=== PATIENT | female | born 1940 | race Caucasian/White ===

== ENCOUNTER 2018-09-15 11:46 | Emergency (ER) | payer MEDICARE ==
--- NOTE | 2018-09-15 12:22 | ERPHSYRPT ---
- History of Present Illness Time Seen by Provider: 09/15/18 12:09 Source: patient Exam Limitations: no limitations Patient Subjective Stated Complaint: pt here for pain to right shoulder for a few days now from a fall, pt can not rremember the date she fell or is she passed out and then fell or lost balance, she suffers from parkinson and also has been having syncopal spells for about 1 1/2 years. she was sent from resp. dept after getting an EEG to have arm checked out Triage Nursing Assessment: pt walked in with walker, alert, resp easy, has bruising and swelling to right upper arm, pt has pain from shoulder to elbow Physician History: This is a 77-year-old white female with history of hypothyroidism, hyperlipidemia, high blood pressure, myocardial infarction, frequent urinary tract infections and Parkinson's. She arrives with complaint of pain in her right shoulder which she states is chronic however she states that she fell approximately one week ago. She states that she had had bruising all down her right humerus which appears to be getting better however she was seen at respiratory obtaining an EEG. apparently thought that and the residential pest control technician thought that the patient's right shoulder appeared to be dislocated. Patient states she has chronic right shoulder pain. She states that it has been worse since falling a week ago. She denies other complaints. Patient is being worked up secondary to her falls neurologist had ordered an EEG. Past medical history includes hypothyroidism, hyperlipidemia, high blood pressure, myocardial infarction, UTI, Parkinson's Past surgical history includes cholecystectomy, hysterectomy, back surgery, foot surgery Occurred: other (chronic right shoulder pain worse sincefalling 1 week ago) Quality: constant Severity of Pain-Max: moderate Severity of Pain-Current: mild Extremities Pain Location: shoulder: right, arm: right Modifying Factors: Improves With: movement Associated Symptoms: No back pain, No chills, No chest discomfort, No chest pain , No dyspnea, No fever, No jaw pain, No neck pain, No sweating, No short of breath, No vomiting Allergies/Adverse Reactions: rice Allergy (Uncoded 09/15/18 12:06) Home Medications: Amlodipine Besylate 5 mg DAILY 09/15/18 [History] Carbidopa/Levodopa [Carbidopa-Levodopa 25-100 Tab] 1 ea DAILY 09/15/18 [History] Docusate Sodium 100 mg DAILY 09/15/18 [History] Donepezil HCl 10 mg DAILY 09/15/18 [History] Latanoprost 2.5 ml .ROUTE DAILY 09/15/18 [History] Levothyroxine Sodium 50 mg DAILY 09/15/18 [History] Rasagiline Mesylate 1 mg DAILY 09/15/18 [History] Hx Influenza Vaccination/Date Given: No Hx Pneumococcal Vaccination/Date Given: No Immunizations Up to Date: Yes - Review of Systems Constitutional: No Symptoms (thanks of normal) Eyes: No Symptoms Ears, Nose, & Throat: No Symptoms, No Ear Pain (he doesn't he is already), No Ear Discharge, No Hearing Changes, No Tinnitus, No Nose Pain, No Nose Congestion , No Nose Discharge, No Sinus Drainage, No Epistaxis, No Mouth Pain, No Mouth Swelling, No Loose Teeth, No Throat Pain, No Throat Swelling, No Hoarse, No Painful Swallowing, No Snoring, No Stridor Respiratory: Stridor, No Cough, No Dyspnea Abdominal/Gastrointestinal: No Abdominal Pain, No Nausea, No Vomiting, No Diarrhea Genitourinary Symptoms: No Dysuria Musculoskeletal: Fall (fell one week ago), Injury (fell one week ago), Other ( pain right shoulder, bruising right arm) Skin: Other, No Rash Neurological: No Dizziness, No Focal Weakness, No Sensory Changes Psychological: No Symptoms Endocrine: No Symptoms All Other Systems: Reviewed and Negative - Past Medical History Pertinent Past Medical History: Yes Cardiac History: High Cholesterol, Hypertension, Myocardial Infarction ([place]) Endocrine Medical History: Hypothyroidism Other Medical History: , utis, parkinson - Past Surgical History Gastrointestinal: Cholecystectomy Musculoskeletal: Orthopedic Surgery Female Surgical History: Hysterectomy Other Surgical History: back surgery , foot surgery - Social History Smoking Status: Never smoker Exposure to second hand smoke: Yes Drug Use: none Patient Lives Alone: No - Female History Hx Last Menstrual Period: post Hx Now: No - Nursing Vital Signs Nursing Vital Signs: Initial Vital Signs Temperature 97.7 F 09/15/18 11:57 Pulse Rate 71 09/15/18 11:57 Respiratory Rate 16 09/15/18 11:57 Blood Pressure 169/82 09/15/18 11:57 O2 Sat by Pulse Oximetry 93 L 09/15/18 11:57 Pain Scale Pain Intensity 5 - Physical Exam General Appearance: alert, thin, other (elderly-appearing) Eyes, Ears, Nose, Throat Exam: moist mucous membranes Neck Exam: non-tender, supple Cardiovascular/Respiratory Exam: chest non-tender, normal breath sounds, regular rate/rhythm, no respiratory distress Abdominal Exam: non-tender, No guarding Back Exam: normal inspection, No vertebral tenderness Shoulder Exam: ecchymosis (Ecchymosis right lateral arm), limited ROM ( decreased range of motion right shoulder) Elbow/Forearm Exam: ecchymosis (ecchymosis right lateral arm decreased range of motion right shoulder), limited ROM Wrist Exam: normal inspection, non-tender, no evidence of injury, normal ROM Hand Exam: normal inspection, non-tender, no evidence of injury, normal ROM DTR - Upper Extremity Exam: tricep (R): 2+, tricep (L): 2+ Neuro/Tendon Exam: normal sensation, normal motor functions Mental Status Exam: alert, oriented x 3, cooperative Skin Exam: other (Ecchymosis right lateral arm) SpO2 Interpretation: normal (3%) SpO2: 93 - Course Nursing assessment & vital signs reviewed: Yes - Radiology Exams Right Shoulder X-ray Interpretation: Discussed w/ radiologist (x-ray right shoulder: Impression : Mild osteopenia, mild/moderate AC degenerative arthropathy, mild multilevel degenerative spondylosis, mild dextroscoliosis, and right lung calcified granuloma. No other bony, articular, or soft tissue abnormalities.) Right Humerus X-ray Interpretation: Discussed w/ radiologist (X-ray right humerus: Impression : Mild osteopenia, mild/moderate AC degenerative arthropathy, and tiny lateral epicondyle spur. No other bony, articular, or soft tissue abnormalities.) Ordered Tests: Active Orders 24 hr Category Date Time Status HUMERUS Stat Exams 09/15/18 12:15 Completed SHOULDER Stat Exams 09/15/18 12:15 Completed - Progress Progress: improved Progress Note: 09/15/18 12:22 This is a 77-year-old white female with history of hypothyroidism, hyperlipidemia, high blood pressure, myocardial infarction, UTI, Parkinson's. Patient was sent from respiratory where she was receiving an EEG which was ordered by her neurologist. Patient has a history of frequent falls and has had frequent syncopal episodes in the past. She states that she has chronic right shoulder pain. However she states that she fell approximately one week ago she was noted to have ecchymosis on her right lateral arm she states bruising from the proximal humerus down to the distal humerus. Patient has chronic pain in her right shoulder. Apparently when she was getting her EEG staff at the respiratory center felt like she had possible dislocation of her shoulder so they were sent to the emergency room. Patient does not appear to be in acute distress she does state that she has pain with moving her shoulder this has been chronic and is worse for the last week. Patient states she took 2 Tylenols at about 9:00 today. Will go ahead and obtain x-ray of the patient's right shoulder and right humerus. 09/15/18 13:09 X-ray of the right shoulder, right humerus, negative fracture or subluxation. Patient unable to abduct her right shoulder without pain, also with pain with reaching forward on the right shoulder. She has been running her walker without difficulty. She does not want a sling. She took Tylenol at 9:30 she does not want another pain medication she states she will take more Tylenol at 1:30 and take this for pain. I have advised patient to follow-up with her family doctor. Patient with possible rotator cuff injury she does have some minimal abduction. - Departure Time of Disposition: 13:11 Departure Disposition: Home Clinical Impression: rule out rotator cuff injury Right shoulder strain Qualifiers: Encounter type: initial encounter Qualified Code(s): S46.911A - Strain of unspecified muscle, fascia and tendon at shoulder and upper arm level, right arm , initial encounter Right shoulder pain Qualifiers: Chronicity: unspecified Qualified Code(s): M25.511 - Pain in right shoulder Condition: Fair Critical Care Time: No Referrals: GIOVANNI PALM [Primary Care Provider] - Additional Instructions: Return home. Cold packs right shoulder 24-48 hours. Tylenol every 4 hours as needed for pain. Follow-up with your family doctor. Return for acute distress or for severe symptoms.
--- NOTE | 2018-09-15 13:04 | XRAY ---
Indication: Pain and bruising following fall one week ago. Comparison: None 3 views of the right shoulder demonstrates mild osteopenia, mild/moderate AC degenerative arthropathy, mild multilevel degenerative spondylosis, mild dextroscoliosis, and right lung calcified granuloma. No other bony, articular, or soft tissue abnormalities.
--- NOTE | 2018-09-15 13:05 | XRAY ---
Indication: Pain and bruising following fall one week ago. Comparison: None 2 views of the right humerus demonstrates mild osteopenia, mild/moderate AC degenerative arthropathy, and tiny lateral epicondyle spur. No other bony, articular, or soft tissue abnormalities.
[2018-09-15 13:37] VITALS: BP 140/60; PULSE 78; O2SAT 97
== END 2018-09-15 13:37 | disposition home or self-care (01) ==
LOC: ED 11:46
DX: S46.911A Strain of unspecified muscle, fascia and tendon at shoulder and upper arm level, right arm, initial encounter (principal); M25.511 Pain in right shoulder; E03.9 Hypothyroidism, unspecified; E78.5 Hyperlipidemia, unspecified; I10 Essential (primary) hypertension; I25.2 Old myocardial infarction; G20 Parkinson's disease; R58 Hemorrhage, not elsewhere classified; E78.00 Pure hypercholesterolemia, unspecified; Z79.899 Other long term (current) drug therapy
CPT/HCPCS: 73030; 73060; 99283

== ENCOUNTER 2019-06-05 11:39 | Emergency (ER) | payer MEDICARE ==
--- NOTE | 2019-06-05 12:14 | ERPHSYRPT ---
- History of Present Illness Time Seen by Provider: 06/05/19 12:00 Source: patient, other (home health nurse) Patient Subjective Stated Complaint: Pt states "I was at pt and I was having some slight abdominal pain. The home health nurse thought I was borderline UTI. " Triage Nursing Assessment: Pt presented alert and oriented X 3, skin pwd. Pt ambulates with a jerky movement, slightly unsteady gait, pt has parkinsons. No apparent respiratory distress. Physician History: 78 yo with parkinsonism , hypothyroidism , chronic issues with balance with tendency to have fall current getting PT is brought in here with CC of mild supra pubic pressure and difficulty urination. per HH nurse she is feeling a bit weaker than usual. no fever or chills. she has similar sx in past with UTI. Denies any abdominal/supra pubic pain at present. no nausea/vomiting or diarrhea reported. Timing/Duration: today Quality: fullness, pressure Onset Location: suprapubic Pain Radiation: none Severity of Pain-Max: mild Sexual intercourse history: non-contributory Modifying Factors: Improves With: nothing Associated Symptoms: dysuria, other (difficulty urinating) Allergies/Adverse Reactions: rice Allergy (Uncoded 09/15/18 12:06) Home Medications: Amlodipine Besylate 5 mg DAILY 09/15/18 [History] Carbidopa/Levodopa [Carbidopa-Levodopa 25-100 Tab] 1 ea DAILY 09/15/18 [History] Docusate Sodium 100 mg DAILY 09/15/18 [History] Donepezil HCl 10 mg DAILY 09/15/18 [History] Latanoprost 2.5 ml .ROUTE DAILY 09/15/18 [History] Levothyroxine Sodium 50 mg DAILY 09/15/18 [History] Rasagiline Mesylate 1 mg DAILY 09/15/18 [History] Hx Tetanus, Diphtheria Vaccination/Date Given: Yes Hx Influenza Vaccination/Date Given: No Hx Pneumococcal Vaccination/Date Given: No - Review of Systems Eyes: No Symptoms Ears, Nose, & Throat: No Symptoms Respiratory: No Symptoms Cardiac: No Symptoms Abdominal/Gastrointestinal: Abdominal Pain Genitourinary Symptoms: Dysuria, Urinary Retention Musculoskeletal: Arthralgias Skin: No Symptoms Neurological: Tremors Endocrine: No Symptoms Hematologic/Lymphatic: No Symptoms - Past Medical History Pertinent Past Medical History: Yes Neurological History: Dementia, Other Cardiac History: Myocardial Infarction ([place]) Respiratory History: Other Endocrine Medical History: Hypothyroidism Musculoskeletal History: Arthritis Other Medical History: [place] x3, Parkinson's, Dementia (early stage), Nebulizer ( PRN), Anxiety, - Past Surgical History Gastrointestinal: Cholecystectomy Musculoskeletal: Orthopedic Surgery Female Surgical History: Hysterectomy Other Surgical History: back surgery , foot surgery - Social History Smoking Status: Never smoker Exposure to second hand smoke: No Drug Use: none Patient Lives Alone: Yes - Female History Hx Now: No - Nursing Vital Signs Nursing Vital Signs: Initial Vital Signs Temperature 97.8 F 06/05/19 11:46 Pulse Rate 64 06/05/19 11:46 Respiratory Rate 18 06/05/19 11:46 Blood Pressure 135/81 06/05/19 11:46 O2 Sat by Pulse Oximetry 97 06/05/19 11:46 Pain Scale Pain Intensity 0 - Physical Exam General Appearance: no apparent distress Eye Exam: PERRL/EOMI, eyes nml inspection Ears, Nose, Throat Exam: normal ENT inspection, TMs normal, pharynx normal Neck Exam: normal inspection, non-tender, supple, full range of motion Respiratory Exam: normal breath sounds, lungs clear Cardiovascular Exam: regular rate/rhythm, normal heart sounds Gastrointestinal/Abdomen Exam: soft, normal bowel sounds, No tenderness, No distention, No guarding Pelvic Exam: not done Rectal Exam: deferred Back Exam: normal inspection, No CVA tenderness Extremity Exam: normal inspection Neurologic Exam: alert, oriented x 3, cooperative, client finance analyst II-XII nml as tested, depressed mood/affect, abnormal gait Skin Exam: normal color SpO2 Interpretation: normal SpO2: 97 O2 Delivery: Room Air - Course Nursing assessment & vital signs reviewed: Yes Ordered Tests: Active Orders 24 hr Category Date Time Status CBC Stat Lab 06/05/19 13:00 Completed CMP Stat Lab 06/05/19 13:00 Completed CULTURE,URINE Stat Lab 06/05/19 12:54 Ordered CULTURE,URINE Stat Lab 06/05/19 12:55 Received TSH, 3RD Generation Stat Lab 06/05/19 12:58 Ordered UA W/RFX UR CULTURE Stat Lab 06/05/19 12:55 Completed Medication Summary Generic Name Dose Route Start Last Admin Trade Name Freq PRN Reason Stop Dose Admin Cephalexin HCl 500 mg 06/05/19 13:27 Keflex 500 Mg PO 06/05/19 13:28 STAT ONE Sodium Chloride 500 mls @ 500 mls/hr 06/05/19 12:56 06/05/19 12:59 Sodium Chloride 0.9% 500 Ml IV 06/05/19 13:55 500 mls/hr .Q1H ONE Administration Discontinued Medications Generic Name Dose Route Start Last Admin Trade Name [place] PRN Reason Stop Dose Admin Sodium Chloride Confirm 06/05/19 12:58 Sodium Chloride 0.9% 500 Ml Administered 06/05/19 12:59 Dose 500 mls @ ud IV .STK-MED ONE Lab/Rad Data: Laboratory Result Diagrams 06/05/19 13:00 06/05/19 13:00 Laboratory Results 06/05/19 06/05/19 06/05/19 Range/Units 13:00 13:00 12:55 WBC 7.0 (4.0-10.5) K/mm3 RBC 3.90 L (4.1-5.4) M/mm3 Hgb 12.0 (12.0-16.0) gm/dl Hct 38.1 (35-47) % MCV 97.7 (78-100) fl MCH 30.7 (26-32) pg MCHC 31.5 L (32-36) g/dl RDW 14.0 (11.5-14.0) % Plt Count 283 (150-450) K/mm3 MPV 10.3 H (6-9.5) fl Sodium 140 (137-145) mmol/L Potassium 4.1 (3.5-5.1) mmol/L Chloride 100 (98-107) mmol/L Carbon Dioxide 31 H (22-30) mmol/L Anion Gap 13.3 (5-15) MEQ/L BUN 21 H (7-17) mg/dL Creatinine 0.79 (0.52-1.04) mg/dL Estimated GFR > 60.0 ML/MIN Glucose 88 (74-106) mg/dL Calcium 9.8 (8.4-10.2) mg/dL Total Bilirubin 0.50 (0.2-1.3) mg/dL AST 30 (14-36) U/L ALT 4 (0-35) U/L Alkaline Phosphatase 101 (38-126) U/L Serum Total Protein 6.8 (6.3-8.2) g/dL Albumin 3.8 (3.5-5.0) g/dL Urine Color YELLOW (YELLOW) Urine Appearance SLIGHTLY CLOUDY (CLEAR) Urine pH 6.0 (5-6) Ur Specific [place] 1.019 (1.005-1.025) Urine Protein NEGATIVE (Negative) Urine Ketones TRACE (NEGATIVE) Urine Blood NEGATIVE (0-5) Lonnie/ul Urine Nitrite NEGATIVE (NEGATIVE) Urine Bilirubin NEGATIVE (NEGATIVE) Urine Urobilinogen 4 (0-1) mg/dL Ur Leukocyte Esterase NEGATIVE (NEGATIVE) Urine WBC (Auto) 11-15 (0-5) /HPF Urine RBC (Auto) 11-15 (0-2) /HPF U Hyaline Cast (Auto) 3-5 (0-2) /LPF U Epithel Cells (Auto) NONE (FEW) /HPF Urine Bacteria (Auto) RARE (NEGATIVE) /HPF Urine Mucus (Auto) SLIGHT (NEGATIVE) /HPF Urine Culture Reflexed YES (NO) Urine Glucose NEGATIVE (NEGATIVE) mg/dL - Progress Progress: improved, re-examined Air Movement: fair Progress Note: she is given a small bolus of IV fluids. She does not have any abdominal tenderness to her stay in the ER. I have obtained a urinalysis with some element of UTI, started on Keflex. She is stable H&H and normal white count. Grossly unremarkable chemistries except for mildly elevated BUN and fluids are given. Patient feels better on reevaluation. No peritoneal signs at all. I do not think she needs any further workup and is stable for discharge with outpatient followup. This is signed end of the worsening antibiotic she seemed understanding. 06/05/19 13:28 Antibiotics given: Yes Counseled pt/family regarding: lab results, diagnosis, need for follow-up - Departure Departure Disposition: Home Clinical Impression: UTI (urinary tract infection) Qualifiers: Urinary tract infection type: acute cystitis Hematuria presence: without hematuria Qualified Code(s): N30.00 - Acute cystitis without hematuria Condition: Stable Critical Care Time: No Referrals: GIOVANNI PALM [Primary Care Provider] - Additional Instructions: follow up with primary care physician for reevaluation. Return to ER for any worsening pain/fever chills. Prescriptions: Cephalexin Mh 500 mg [Keflex 500 mg] 500 mg PO BID #10 capsule
[2019-06-05] MEDS ORDERED: Sodium Chloride 0.9% 500 ML 500 ML IV ONE ×2 (12:56→12:58)
[2019-06-05 13:01] LABS: Appearance SLIGHTLY CLOUDY (CLEAR); Bacteria RARE /HPF (NEGATIVE); Bilirubin NEGATIVE (NEGATIVE); Blood NEGATIVE Ery/ul (0-5); Glucose NEGATIVE (NEGATIVE); Ketones TRACE (NEGATIVE); Leukocyte Esterase NEGATIVE (NEGATIVE); Mucus SLIGHT /HPF (NEGATIVE); Nitrite NEGATIVE (NEGATIVE); Protein,Urine Dip NEGATIVE (Negative); Specific Gravity 1.019 (1.005-1.025); Urobilinogen 4 mg/dL (0-1)
[2019-06-05 13:05] LABS: Hematocrit 38.1 % (35-47); Mean Cell Volume 97.7 fl (78-100); Mean Corpuscular Hgb Concent. 31.5 g/dl (32-36); Mean Platelet Volume 10.3 fl (6-9.5); Platelet Count 283 K/mm3 (150-450)
[2019-06-05 13:15] LABS: ALBUMIN 3.8 g/dL (3.5-5.0); ALKALINE PHOSPHATASE 101 U/L (38-126); ANION GAP 13.3 MEQ/L (5-15); BLOOD UREA NITROGEN 21 mg/dL (7-17); CHLORIDE 100 mmol/L (98-107); Calcium 9.8 mg/dL (8.4-10.2); Carbon Dioxide 31 mmol/L (22-30); Creatinine 1 0.79 mg/dL (0.52-1.04); Glucose 88 mg/dL (74-106); Potassium 4.1 mmol/L (3.5-5.1); SGOT/AST 30 U/L (14-36); SODIUM 140 mmol/L (137-145); Total Protein 6.8 g/dL (6.3-8.2)
[2019-06-05 13:16] LABS: SGPT/ALT 4 U/L (0-35)
[2019-06-05 13:17] LABS: Mean Corpuscular Hemoglobin 30.7 pg (26-32)
[2019-06-05] MEDS ORDERED: KEFLEX 500 MG PO ONE (13:27)
[2019-06-05] MEDS ORDERED: KEFLEX 500 MG ONE (13:29)
[2019-06-05 13:37] VITALS: BP 140/92; PULSE 60; O2SAT 94
== END 2019-06-05 14:01 | disposition home or self-care (01) ==
LOC: ED 11:39
DX: N30.00 Acute cystitis without hematuria (principal); E03.9 Hypothyroidism, unspecified
CPT/HCPCS: 36000; 36415; 80053; 81001; 84443; 85027; 87077; 87086; 87186; 96360; 99284; A9270-GY

== ENCOUNTER 2019-07-13 10:15 | Emergency (ER) | payer MEDICARE ==
--- NOTE | 2019-07-13 10:20 | ERPHSYRPT ---
- History of Present Illness Time Seen by Provider: 07/13/19 10:20 Source: patient, family Exam Limitations: no limitations Physician History: 78 y/o white female with parkinsons dz and falls frequently, fell 3 days ago hit her head and had abd pain, shoulder and left femur pain. pt was evaluated at ED in [facility]. she underwent ct head, abd/pelvis and lumbar spine and xrays of left shoulder and left femur. pt presents with persistent pain mid left femur. pt did state she has had pain in this area for several months. hurts to stand or walk. no other new complaints Occurred: days ago (3) Reason for Fall: lost balance (secondary to her parkinsons dz) Injuries/Pain Location: lower extremity (left femur) Loss of Consciousness: no loss of consciousness Quality: aching, throbbing Severity of Pain-Max: moderate Severity of Pain-Current: moderate Modifying Factors: Improves With: movement Associated Symptoms (Fall): denies symptoms Allergies/Adverse Reactions: rice Allergy (Uncoded 07/13/19 10:28) Home Medications: Amlodipine Besylate 5 mg DAILY 09/15/18 [History] Carbidopa/Levodopa [Carbidopa-Levodopa 25-100 Tab] 1 ea DAILY 09/15/18 [History] Docusate Sodium 100 mg DAILY 09/15/18 [History] Donepezil HCl 10 mg DAILY 09/15/18 [History] Latanoprost 2.5 ml .ROUTE DAILY 09/15/18 [History] Levothyroxine Sodium 50 mg DAILY 09/15/18 [History] Rasagiline Mesylate 1 mg DAILY 09/15/18 [History] Ferrous Sulfate 325 mg PO DAILY 07/13/19 [History] Pravastatin Sodium 20 mg PO DAILY 07/13/19 [History] Hx Tetanus, Diphtheria Vaccination/Date Given: Yes Hx Influenza Vaccination/Date Given: No Hx Pneumococcal Vaccination/Date Given: No - Review of Systems Constitutional: No Symptoms Eyes: No Symptoms Ears, Nose, & Throat: No Symptoms Respiratory: No Symptoms Cardiac: No Symptoms Abdominal/Gastrointestinal: No Symptoms Genitourinary Symptoms: No Symptoms Musculoskeletal: No Symptoms, Fall, Other (left femur pain) Skin: No Symptoms Neurological: No Symptoms Psychological: No Symptoms Endocrine: No Symptoms Hematologic/Lymphatic: No Symptoms Immunological/Allergic: No Symptoms All Other Systems: Reviewed and Negative - Past Medical History Pertinent Past Medical History: Yes Neurological History: Dementia, Other Cardiac History: Myocardial Infarction ([place]) Respiratory History: Other Endocrine Medical History: Hypothyroidism Musculoskeletal History: Arthritis GI Medical History: No Pertinent History History: No Pertinent History Psycho-Social History: No Pertinent History Other Medical History: [place] x3, Parkinson's, Dementia (early stage), Nebulizer ( PRN), Anxiety, - Past Surgical History Neuro Surgical History: No Pertinent History Cardiac: No Pertinent History Respiratory: No Pertinent History Gastrointestinal: Cholecystectomy Genitourinary: No Pertinent History Musculoskeletal: Orthopedic Surgery Female Surgical History: Hysterectomy Other Surgical History: back surgery , foot surgery - Social History Smoking Status: Never smoker Exposure to second hand smoke: No Drug Use: none Patient Lives Alone: Yes - Nursing Vital Signs Nursing Vital Signs: Initial Vital Signs Temperature 98.6 F 07/13/19 10:22 Pulse Rate 66 07/13/19 10:22 Respiratory Rate 18 07/13/19 10:22 Blood Pressure 176/90 07/13/19 10:22 O2 Sat by Pulse Oximetry 97 07/13/19 10:22 Pain Scale Pain Intensity 9 - Mk Coma Score Best Eye Response ([place]): (4) open spontaneously Best Verbal Response ([place]): (5) oriented Best Motor Response (Mk): (6) obeys commands [place] Total: 15 - Physical Exam General Appearance: mild distress, alert, anxiety Head Injury: no evidence of injury Eye Exam: PERRL/EOMI, eyes nml inspection ENT Exam: airway nml, nml ext.inspection Neck Exam: supple, trachea midline, full range of motion, normal alignment Respiratory/Chest Exam: normal breath sounds, No chest tenderness, No respiratory distress Cardiovascular Exam: normal heart sounds, regular rate/rhythm Gastrointestinal Exam: soft, No tenderness Back Exam: normal inspection, normal range of motion, No CVA tenderness, No vertebral tenderness Extremity Exam: normal inspection, pelvis stable, bony point tenderness (mid femur on left), pain with movement Neurologic Exam: alert, oriented x 3, cooperative, facilities operator II-XII nml as tested Skin Exam: normal color, warm, dry SpO2 Interpretation: normal O2 Delivery: Room Air Ordered Tests: Active Orders 24 hr Category Date Time Status LOWER EXTREMITY WO CONTRAST [CT] Stat Exams 07/13/19 10:46 Completed Medication Summary Discontinued Medications Generic Name Dose Route Start Last Admin Trade Name Freq PRN Reason Stop Dose Admin Morphine Sulfate 2 mg 07/13/19 10:50 07/13/19 11:00 Morphine Sulfate 2 Mg Inj IM 07/13/19 10:51 2 mg STAT ONE Administration Morphine Sulfate Confirm 07/13/19 10:55 Morphine Sulfate 2 Mg Inj Administered 07/13/19 10:56 Dose 2 mg .ROUTE .STK-MED ONE Ondansetron HCl 4 mg 07/13/19 10:49 07/13/19 10:59 Zofran Odt 4 Mg PO 07/13/19 10:50 4 mg STAT ONE Administration Ondansetron HCl Confirm 07/13/19 10:55 Zofran Odt 4 Mg Administered 07/13/19 10:56 Dose 4 mg .ROUTE .STK-MED ONE - Progress Progress: improved Progress Note: 07/13/19 12:19 ct left femur-no acute process Counseled pt/family regarding: diagnosis, need for follow-up, rad results - Departure Departure Disposition: Home Clinical Impression: Pain of left femur Condition: Stable Critical Care Time: No Referrals: GIOVANNI PALM [Primary Care Provider] - Additional Instructions: follow up with primary doctor and neurologist for further management. Prescriptions: Hydrocodone/APAP 5/325 [M[place] 5/325 mg] 1 each PO Q12H PRN PRN #6 tablet MDD 2 PRN Reason: Pain
[2019-07-13 10:33] VITALS: PULSE 66
[2019-07-13] MEDS ORDERED: ZOFRAN ODT 4 MG PO ONE (10:49)
[2019-07-13] MEDS ORDERED: MORPHINE SULFATE 2 MG INJ IM ONE (10:50)
[2019-07-13] MEDS ORDERED: ZOFRAN ODT 4 MG ONE (10:55)
[2019-07-13] MEDS ORDERED: MORPHINE SULFATE 2 MG INJ ONE (10:55)
--- NOTE | 2019-07-13 12:12 | XRAY ---
Indication: Pain following fall 3 days ago. Multiple contiguous axial images obtained through the left femur. Two-dimensional sagittal and coronal reformatted images obtained. Comparison: None Study slightly degraded by motion artifact. There is osteopenia and minimal joint space narrowing of the hip. No acute fracture, dislocation, or suspicious bony lesions. Knee joint unremarkable without effusion. Mild scattered vascular calcifications throughout. Impression: Osteopenia, minimal left hip degenerative joint space narrowing, and mild scattered vascular calcifications in a otherwise negative CT left femur. CTDI 28.07.
[2019-07-13 13:33] VITALS: BP 134/87; O2SAT 99
== END 2019-07-13 13:46 | disposition home or self-care (01) ==
LOC: ED 10:15
DX: M79.652 Pain in left thigh (principal); W18.30XA Fall on same level, unspecified, initial encounter; R29.6 Repeated falls; M25.512 Pain in left shoulder; R10.9 Unspecified abdominal pain; G20 Parkinson's disease; F02.80 Dementia in other diseases classified elsewhere, unspecified severity, without behavioral disturbance, psychotic disturbance, mood disturbance, and anxiety; Z79.899 Other long term (current) drug therapy; E03.9 Hypothyroidism, unspecified; I25.2 Old myocardial infarction
CPT/HCPCS: 73700; 96372; 99284; J2270; Q0162

== ENCOUNTER 2020-10-14 19:50 | Emergency (ER) | payer MEDICARE ==
--- NOTE | 2020-10-14 19:53 | ERPHSYRPT ---
- History of Present Illness Time Seen by Provider: 10/14/20 19:52 Source: patient, EMS Exam Limitations: clinical condition Physician History: This is an 79-year-old white female has a history of dementia and Parkinson's disease as well as frequent falls and presents via ambulance after falling. She complains of neck pain, anterior chest wall pain and right hip pain. Patient uses a walker. She does not recall all the events of the fall. She also has a history of hypertension and hypothyroidism. Patient presents with a c-collar in place and pelvic binder in place. Patient was not on a backboard and was cleared at the scene from the backboard standpoint. Patient was given Zofran and fentanyl prior to arrival. Occurred: just prior to arrival Reason for Fall: unknown Injuries/Pain Location: neck, chest, lower extremity (Right hip) Loss of Consciousness: unsure Quality: aching Severity of Pain-Max: moderate Severity of Pain-Current: mild Modifying Factors: Improves With: immobilization Associated Symptoms (Fall): neck pain, other (Complains of anterior chest wall pain, neck pain and right hip pain) Allergies/Adverse Reactions: rice Allergy (Uncoded 10/14/20 20:08) Home Medications: Carbidopa/Levodopa [Carbidopa-Levodopa 25-100 Tab] 1 ea DAILY 09/15/18 [History] Donepezil HCl 10 mg DAILY 09/15/18 [History] Levothyroxine Sodium 50 mg DAILY 09/15/18 [History] Rasagiline Mesylate 1 mg DAILY 09/15/18 [History] Buspirone HCl 5 mg [Buspar 5 mg] 5 mg PO DAILY 10/14/20 [History] Hx Tetanus, Diphtheria Vaccination/Date Given: Yes Hx Influenza Vaccination/Date Given: No Hx Pneumococcal Vaccination/Date Given: No Travel Risk - International Travel Have you traveled outside of the country in past 3 weeks: No - Coronavirus Screening Are you exhibiting any of the following symptoms?: No Close contact with a COVID-19 positive Pt in past 14-21 Days: No - Review of Systems Constitutional: No Symptoms Eyes: No Symptoms Ears, Nose, & Throat: No Symptoms Respiratory: No Symptoms Cardiac: No Symptoms Abdominal/Gastrointestinal: No Symptoms Genitourinary Symptoms: No Symptoms Musculoskeletal: Neck Pain, Fall, Injury, Joint Pain (Right hip) Skin: No Symptoms Neurological: No Symptoms Psychological: No Symptoms Endocrine: No Symptoms Hematologic/Lymphatic: No Symptoms Immunological/Allergic: No Symptoms All Other Systems: Reviewed and Negative - Past Medical History Pertinent Past Medical History: Yes Neurological History: Other Cardiac History: Hypertension, Myocardial Infarction (SC) Respiratory History: No Pertinent History Endocrine Medical History: Hypothyroidism Musculoskeletal History: Osteoarthritis GI Medical History: No Pertinent History History: No Pertinent History Psycho-Social History: No Pertinent History Other Medical History: PMHX: FREQUENT UTIs. SX HX: CHOLECYSTECTOMY, HYSTERECTOMY, BACK SURGERY, FOOT SURGERY (PER PATIENT CUT BONES THAT GREW UP ON THE TOP OF HER FOOT OFF) - Past Surgical History Past Surgical History: Yes Neuro Surgical History: No Pertinent History Cardiac: No Pertinent History Respiratory: No Pertinent History Gastrointestinal: Cholecystectomy Genitourinary: No Pertinent History Musculoskeletal: Orthopedic Surgery Female Surgical History: Hysterectomy Other Surgical History: back surgery , foot surgery - Social History Smoking Status: Never smoker Exposure to second hand smoke: No Drug Use: none Patient Lives Alone: Yes - Nursing Vital Signs Nursing Vital Signs: Initial Vital Signs Temperature 97.0 F 10/14/20 19:52 Pulse Rate 61 10/14/20 19:52 Respiratory Rate 16 10/14/20 19:52 Blood Pressure 118/75 10/14/20 19:52 O2 Sat by Pulse Oximetry 98 10/14/20 19:52 Pain Scale Pain Intensity 5 - [place] Coma Score Best Eye Response (Mk): (4) open spontaneously Best Verbal Response ([place]): (4) confused conversation (Medicated with fentanyl prior to arrival) Best Motor Response (Mk): (6) obeys commands [place] Total: 14 - Physical Exam General Appearance: no apparent distress, thin Head Injury: no evidence of injury Eye Exam: PERRL/EOMI, eyes nml inspection ENT Exam: airway nml, nml ext.inspection, No evidence of ENT injury Neck Exam: c-collar in place Respiratory/Chest Exam: chest tenderness (Midline sternal tenderness to palpation), normal breath sounds, No respiratory distress, No ecchymosis, No crepitus Cardiovascular Exam: normal heart sounds, regular rate/rhythm, normal peripheral pulses, No murmur Gastrointestinal Exam: soft, normal bowel sounds Rectal Exam: not done Back Exam: normal inspection, normal range of motion, No CVA tenderness, No vertebral tenderness Extremity Exam: normal inspection, normal range of motion, pelvis stable Neurologic Exam: alert, cooperative, stock raiser II-XII nml as tested, confusion (Patient has dementia and was given fentanyl prior to arrival) Skin Exam: normal color, warm, dry SpO2 Interpretation: normal O2 Delivery: Room Air - Course Nursing assessment & vital signs reviewed: Yes Ordered Tests: Active Orders 24 hr Category Date Time Status CERVICAL SPINE WO CONTRAST [CT] Stat Exams 10/14/20 20:24 Taken CHEST WITHOUT CONTRAST [CT] Stat Exams 10/14/20 20:34 Taken HEAD WITHOUT CONTRAST [CT] Stat Exams 10/14/20 20:24 Taken LOWER EXTREMITY WO CONTRAST [CT] Stat Exams 10/14/20 20:09 Taken - Progress Progress: improved, re-examined Progress Note: 10/14/20 21:38 CAT scan of the head shows no acute intracranial abnormality CAT scan of the cervical spine shows degenerative changes but no acute fracture or subluxation CAT scan of the chest shows old rib fractures but no acute osseous or vascular process. CAT scan of the bilateral pelvis and hips reveals no evidence of any acute fracture or dislocation. Counseled pt/family regarding: diagnosis, need for follow-up, rad results - Departure Departure Disposition: Home Clinical Impression: Fall with no injury Condition: Stable Critical Care Time: No Referrals: MERRICK DIAZ [Primary Care Provider] - Additional Instructions: Continue the patient's medication as prescribed. Follow-up with the patient's primary care physician for further management.
[2020-10-14 20:10] VITALS: O2SAT 98
[2020-10-14 22:35] VITALS: BP 174/82; PULSE 60
--- NOTE | 2020-10-15 09:03 | XRAY ---
Indication: Pain following fall. History dementia/Parkinson's disease. Multiple contiguous axial images obtained through the head without contrast. Comparison: May 25, 2008. Progressive age-appropriate global atrophy and mild/moderate periventricular degenerative micro-ischemia bilaterally. No acute intra-abdominal hemorrhage, abnormal extra-axial fluid collection, or mass effect. Fourth ventricle is midline. Bony calvarium intact. Visualized paranasal sinuses and mastoid air cells are clear. Impression: Nonacute senile brain.
--- NOTE | 2020-10-15 09:07 | XRAY ---
Indication: Pain following fall. History dementia/Parkinson's disease. Multiple contiguous axial images obtained through the cervical spine. Sagittal and coronal reformatted images obtained. Comparison: None. Osseous structures demineralized consistent with patient's age. Axial images are degraded by motion artifact throughout. No acute fracture, suspicious bony lesions, or spinal canal stenosis. Mild C3-T1 degenerative endplate spurring. Also mild multilevel bilateral degenerative facet hypertrophy. Sagittal and coronal reformatted images demonstrates lordotic reversal, positional versus paraspinal spasm. C3-T1 degenerative disc space loss. No acute compression fracture, subluxation, or jumped facet. Normal appearing craniocervical junction. Visualized noncontrasted soft tissues demonstrates air bubbles in the right subclavian vein presumed iatrogenic. Impression: 1. Motion artifact. 2. Cervical lordotic reversal, positional versus paraspinal spasm. 3. Negative acute fracture/subluxation. 4. Osteopenia and multilevel degenerative changes.
--- NOTE | 2020-10-15 09:11 | XRAY ---
Indication: Pain following fall. History dementia/Parkinson's disease. Multiple contiguous axial images obtained through the chest without contrast. Comparison: None. Lungs demonstrates moderate bibasilar subsegmental atelectasis/scarring and tiny right upper lobe calcified granuloma. No suspicious pulmonary mass/nodule, infiltrate, effusion, or pneumothorax. Heart is not enlarged. Aorta is normal in course and caliber with mild arteriosclerotic calcifications. Tiny mediastinal and right hilar calcified nodes. No pathologic mediastinal lymphadenopathy. Bony thorax intact with osteopenia, mild degenerative changes throughout the spine, multilevel tiny Schmorl nodes, mild bilateral shoulder degenerative arthropathy, old right 9/10 rib fractures, and old left 6 rib fracture. Limited upper abdomen demonstrates 1.5 cm left lobe hepatic cyst. Impression: 1. Bibasilar atelectasis/scarring and old granulomatous disease. 2. No acute cardiopulmonary abnormalities on this noncontrast exam. 3. Chronic bony findings and incidental hepatic cyst.
--- NOTE | 2020-10-15 09:17 | XRAY ---
Indication: Pain following fall. History dementia/Parkinson's disease. Multiple contiguous axial images obtained through the pelvis with special attention to the osseous structures. Sagittal and coronal reformatted images obtained. Comparison: None. Osseous structures demineralized consistent with patient's age. Visualized lower lumbar spine demonstrates moderate degenerative spondylosis and 5 mm L5 spondylolisthesis. Both hips demonstrates weightbearing degenerative joint space loss and small bilateral greater trochanter spurring. Visualized noncontrasted soft tissues demonstrates scattered sigmoid diverticulosis and moderate aortoiliac calcifications. Impression: 1. Negative acute fracture/dislocation. 2. Osteopenia, lower lumbar degenerative spondylosis, grade 1 L5 spondylolisthesis, and bilateral hip degenerative arthropathy. 3. Incidental sigmoid diverticulosis.
== END 2020-10-14 22:30 | disposition home or self-care (01) ==
LOC: ED 19:50
DX: Z04.3 Encounter for examination and observation following other accident (principal); W19.XXXA Unspecified fall, initial encounter; M54.2 Cervicalgia; R07.89 Other chest pain; M25.551 Pain in right hip; F03.90 Unspecified dementia, unspecified severity, without behavioral disturbance, psychotic disturbance, mood disturbance, and anxiety; G20 Parkinson's disease; I10 Essential (primary) hypertension; E03.9 Hypothyroidism, unspecified; I25.2 Old myocardial infarction
CPT/HCPCS: 36000; 70450; 71250; 72125; 73700; 99284

== ENCOUNTER 2021-11-15 16:24 | Observation (INO) | payer MEDICARE ==
--- NOTE | 2021-11-15 17:10 | ERPHSYRPT ---
- History of Present Illness Source: patient, other (Son) Exam Limitations: other (Parkinson's Ds/Dementia) Patient Subjective Stated Complaint: see below Triage Nursing Assessment: pt is alert and oriented x3. pt comes in with son with c/o worsening confusion today and headache. pt is mildly confused but able to answer appropriately. no one sided weakness noted. no facial drooping. pt required assist of 2 to get from chair to bed. pt recently had UTI and has finished antibiotics. pt son tested for covid with home test and pt was postive. Physician History: 81 yo wf w Parkinson's Ds/Dementia presents w lethargy today. Pt had a + home CV19 test today. Pt has had a mild SLAUGHTER. Weakness is generalized and not focal. She is disoriented to time. Pt denies N/V/D/melena/hematochezia/chest pain/cough/dyspnea. Timing/Duration: yesterday, worse Severity: moderate Modifying Factors: Worsens With: cold therapy, eating, immobilization, medication, movement, rest, acetaminophen, ibuprofen, nothing Associated Symptoms: malaise, weakness, No nausea, No vomiting, No abdominal pain, No shortness of breath, No heartburn, No diaphoresis, No cough, No chills, No chest pain, No fever, No headaches, No loss of appetite, No rash, No syncope, No seizure Allergies/Adverse Reactions: rice Allergy (Uncoded 10/14/20 20:08) Home Medications: Carbidopa/Levodopa [Carbidopa-Levodopa 25-100 Tab] 1 ea DAILY 09/15/18 [History] Donepezil HCl 10 mg DAILY 09/15/18 [History] Levothyroxine Sodium 50 mg DAILY 09/15/18 [History] Rasagiline Mesylate 1 mg DAILY 09/15/18 [History] Buspirone HCl 5 mg [Buspar 5 mg] 5 mg PO DAILY 10/14/20 [History] Hx Tetanus, Diphtheria Vaccination/Date Given: Yes Hx Influenza Vaccination/Date Given: No Hx Pneumococcal Vaccination/Date Given: No Immunizations Up to Date: Yes Travel Risk - International Travel Have you traveled outside of the country in past 3 weeks: No - Coronavirus Screening Are you exhibiting any of the following symptoms?: Yes Symptoms: Headaches/Body Aches/Fatigue Close contact with a COVID-19 positive Pt in past 14-21 Days: Yes - Vaccine Status Have you recieved a Covid-19 vaccination: No - Review of Systems Constitutional: No Symptoms, Fatigue, Lethargy, Malaise, Weakness Eyes: No Symptoms Ears, Nose, & Throat: No Symptoms Respiratory: No Symptoms Cardiac: No Symptoms Abdominal/Gastrointestinal: No Symptoms Genitourinary Symptoms: No Symptoms Musculoskeletal: No Symptoms Skin: No Symptoms Neurological: No Symptoms, Headache, Lethargy Psychological: No Symptoms Endocrine: No Symptoms Hematologic/Lymphatic: No Symptoms Immunological/Allergic: No Symptoms - Past Medical History Pertinent Past Medical History: Yes Neurological History: Other ENT History: No Pertinent History Cardiac History: Hypertension, Myocardial Infarction (MA) Respiratory History: No Pertinent History Endocrine Medical History: Hypothyroidism Musculoskeletal History: Osteoarthritis GI Medical History: No Pertinent History History: No Pertinent History Psycho-Social History: No Pertinent History Other Medical History: PMHX: FREQUENT UTIs. SX HX: CHOLECYSTECTOMY, HYSTERECTOMY, BACK SURGERY, FOOT SURGERY (PER PATIENT CUT BONES THAT GREW UP ON THE TOP OF HER FOOT OFF) - Past Surgical History Past Surgical History: Yes Neuro Surgical History: No Pertinent History Cardiac: No Pertinent History Respiratory: No Pertinent History Gastrointestinal: Cholecystectomy Genitourinary: No Pertinent History Musculoskeletal: Orthopedic Surgery Female Surgical History: Hysterectomy Other Surgical History: back surgery , foot surgery - Social History Smoking Status: Never smoker Exposure to second hand smoke: No Drug Use: none Patient Lives Alone: Yes Significant Family History: no pertinent family hx - Nursing Vital Signs Nursing Vital Signs: Initial Vital Signs Temperature 99.4 F 11/15/21 16:25 Pulse Rate 72 11/15/21 16:25 Respiratory Rate 20 11/15/21 16:25 Blood Pressure 146/85 11/15/21 16:25 O2 Sat by Pulse Oximetry 98 11/15/21 16:25 Pain Scale Pain Intensity 3 Hypertensive - Physical Exam General Appearance: no apparent distress, lethargy Eye Exam: PERRL/EOMI, eyes nml inspection Ears, Nose, Throat Exam: normal ENT inspection, TMs normal, pharynx normal, dry mucous membranes Neck Exam: normal inspection, non-tender, supple, full range of motion, No meningismus, No mass, No Brudzinski, No Kernig's, No carotid bruit Respiratory Exam: normal breath sounds, lungs clear, airway intact, No respiratory distress Cardiovascular Exam: regular rate/rhythm, normal heart sounds, normal peripheral pulses, capillary refill <2 sec, No murmur Gastrointestinal/Abdomen Exam: soft, normal bowel sounds, No tenderness Back Exam: normal inspection, normal range of motion, No CVA tenderness, No vertebral tenderness Extremity Exam: normal inspection, normal range of motion Neurologic Exam: alert, cooperative, vp scientific II-XII nml as tested, sensation nml, depressed mood/affect, No oriented x 3 (Disoriented to time(Baseline)), No motor deficits, No sensory deficit, No motor weakness, No facial droop, No aphasia, No dysarthria Skin Exam: normal color, warm, dry Lymphatic Exam: No adenopathy SpO2 Interpretation: normal SpO2: 98 O2 Delivery: Room Air - Course EKG Interpreted by Me: RATE (NSR/R62/Low voltage/Normal QT-QTc/No acute ST segment abnormality) - CT Exams Chest CT Interpretation: Tele-radiologist Report (CT chest-nothing acute/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) Head CT Interpretation: Tele-radiologist Report (CT head neg) Ordered Tests: Active Orders 24 hr Category Date Time Status Bedrest ROUTINE Activity 11/15/21 18:49 Active Hospital Receptionist ROUTINE Care 11/15/21 18:49 Active Code Status Order ROUTINE Care 11/15/21 18:48 Active EKG-ER Only STAT Care 11/15/21 17:01 Active IV Care Q6H Care 11/15/21 18:48 Active IV Insertion STAT Care 11/15/21 17:01 Active Isolation, Initiate & Maintain Q6H Care 11/15/21 18:[address] in Observation ROUTINE Care 11/15/21 18:48 Active Vital Signs Q6H Care 11/15/21 18:48 Active House Regular Diet Diet 11/15/21 Breakfast Active CHEST WITHOUT CONTRAST [CT] Stat Exams 11/15/21 17:40 Taken HEAD WITHOUT CONTRAST [CT] Stat Exams 11/15/21 17:35 Taken BLOOD CULTURE Stat Lab 11/15/21 Ordered CBC AM.LAB Lab 11/16/21 04:00 Ordered CBC W DIFF Stat Lab 11/15/21 17:09 Completed CMP AM.LAB Lab 11/16/21 04:00 Ordered CMP Stat Lab 11/15/21 17:09 Completed CULTURE,URINE Stat Lab 11/15/21 17:08 Received Lactic Acid Stat Lab 11/15/21 17:01 Completed NT PRO BNP Stat Lab 11/15/21 17:09 Completed PROTIME WITH INR Stat Lab 11/15/21 17:09 Completed PTT Stat Lab 11/15/21 17:09 Completed TROPONIN Q3H Lab 11/15/21 17:09 Completed TROPONIN Q3H Lab 11/15/21 20:15 Ordered TROPONIN Q3H Lab 11/15/21 23:15 Ordered TROPONIN Q3H Lab 11/16/21 02:15 Ordered TROPONIN Q3H Lab 11/16/21 05:15 Ordered Urine Triage Profile Stat Lab 11/15/21 17:08 Completed Respiratory Therapy Consult ROUTINE RT 11/15/21 18:48 Active Transfer Order Routine Transfer 11/15/21 Ordered Medication Summary Generic Name Dose Route Start Last Admin Trade Name Freq PRN Reason Stop Dose Admin Acetaminophen 650 mg 11/15/21 18:48 Acetaminophen 325 Mg Tablet PO 12/15/21 18:47 Q4H PRN PRN PAIN AND/OR FEVER Dexamethasone Sodium Phosphate 4 mg 11/16/21 10:00 Dexamethasone Sod Phosphate 4 Mg/Ml Ml IV 12/16/21 09:59 DAILY AASHISH Enoxaparin Sodium 40 mg 11/16/21 10:00 Enoxaparin Sodium 40 Mg/0.4 Ml Syringe SQ 12/16/21 09:59 DAILY AASHISH Ceftriaxone Sodium/Dextrose 1 g in 50 mls @ 100 mls/hr 11/16/21 10:00 Rocephin 1 Gm-D5w 50 Ml Bag IV 11/19/21 09:59 Q24H10 AASHISH Remdesivir 100 mg/ Sodium 100 mls @ 100 mls/hr 11/16/21 18:53 Chloride IV 11/19/21 19:52 Q24H AASHISH Remdesivir 200 mg/ Sodium 250 mls @ 125 mls/hr 11/15/21 18:53 Chloride IV 11/15/21 20:52 ONCE ONE Sodium Chloride 1,000 mls @ 100 mls/hr 11/15/21 19:00 Sodium Chloride 0.9% 1000 Ml IV 12/15/21 18:59 .Q10H AASHISH Ondansetron HCl 4 mg 11/15/21 18:48 Ondansetron Hcl 4 Mg/2 Ml Vial IV 12/15/21 18:47 Q6H PRN PRN NAUSEA/VOMITING Pantoprazole Sodium 40 mg 11/16/21 10:00 Pantoprazole 40 Mg Vial IV 12/16/21 09:59 Q24H10 AASHISH Discontinued Medications Generic Name Dose Route Start Last Admin Trade Name Freq PRN Reason Stop Dose Admin Dexamethasone Sodium Phosphate 10 mg 11/15/21 18:54 Dexamethasone Sod Phosphate 10 Mg/Ml IV 11/15/21 18:55 STAT ONE Sodium Chloride 1,000 mls @ 0 mls/hr 11/15/21 19:00 Sodium Chloride 0.9% 1000 Ml IV 12/15/21 18:59 .Q0M AASHISH KVO Lab/Rad Data: Laboratory Result Diagrams 11/15/21 17:09 11/15/21 17:09 Laboratory Results 11/15/21 11/15/21 11/15/21 Range/Units 17:33 17:30 17:09 WBC (4.0-10.5) K/mm3 RBC (4.1-5.4) M/mm3 Hgb (12.0-16.0) gm/dl Hct (35-47) % MCV (78-100) fl MCH (26-32) pg MCHC (32-36) g/dl RDW (11.5-14.0) % Plt Count (150-450) K/mm3 MPV (7.5-11.0) fl Gran % (36.0-66.0) % Eos # (Auto) (0-0.5) Absolute Lymphs (auto) (1.0-4.6) Absolute Monos (auto) (0.0-1.3) Lymphocytes % (24.0-44.0) % Monocytes % (0.0-12.0) % Eosinophils % (0.00-5.0) % Basophils % (0.0-0.4) % Absolute Granulocytes (1.4-6.9) Basophils # (0-0.4) PT (9.4-12.5) SECONDS INR (0.8-3.0) APTT (25.1-36.5) SECONDS Sodium (137-145) mmol/L Potassium (3.5-5.1) mmol/L Chloride (98-107) mmol/L Carbon Dioxide (22-30) mmol/L Anion Gap (5-15) MEQ/L BUN (7-17) mg/dL Creatinine (0.52-1.04) mg/dL Estimated GFR ML/MIN Glucose (74-106) mg/dL Lactic Acid (0.4-2.0) Calcium (8.4-10.2) mg/dL Total Bilirubin (0.2-1.3) mg/dL AST (14-36) U/L ALT (0-35) U/L Alkaline Phosphatase (38-126) U/L Troponin I < 0.012 (0.000-0.034) ng/mL NT-Pro-B Natriuret Pep (0-1800) pg/mL Serum Total Protein (6.3-8.2) g/dL Albumin (3.5-5.0) g/dL Urinalys Dipstick Clnc MAIN LAB Urine Color YELLOW (YELLOW) Urine Appearance CLEAR (CLEAR) Urine pH 6.0 (5-6) Ur Specific [place] 1.025 (1.005-1.025) POC Urine Protein Conf NEGATIVE (Negative) Urine Ketones NEGATIVE (NEGATIVE) Urine Nitrite POSITIVE (NEGATIVE) Urine Bilirubin NEGATIVE (NEGATIVE) Urine Urobilinogen 2 (0-1) mg/dL Urine Leukocytes NEGATIVE (NEGATIVE) Urine WBC (Auto) 11-15 (0-5) /HPF Urine RBC (Auto) 0-2 (0-2) /HPF U Epithel Cells (Auto) NONE (FEW) /HPF Urine Bacteria (Auto) RARE (NEGATIVE) /HPF Urine RBC NEGATIVE (0-5) Lonnie/ul Urine Mucus (Auto) SLIGHT (NEGATIVE) /HPF Urine Glucose NEGATIVE (NEGATIVE) mg/dL Urine Opiates Level (NEGATIVE) Ur Methadone (NEGATIVE) Urine Barbiturates (NEGATIVE) Ur Phencyclidine (PCP) (NEGATIVE) Urine Amphetamine (NEGATIVE) U Benzodiazepine Level (NEGATIVE) Urine Cocaine (NEGATIVE) Urine Marijuana (THC) (NEGATIVE) Influenza Type A Ag NEGATIVE (NEGATIVE) Influenza Type B Ag NEGATIVE (NEGATIVE) RSV (PCR) NEGATIVE (Negative) SARS-CoV-2 (PCR) POSITIVE A (NEGATIVE) 11/15/21 11/15/21 11/15/21 Range/Units 17:09 17:09 17:09 WBC 5.0 (4.0-10.5) K/mm3 RBC 4.23 (4.1-5.4) M/mm3 Hgb 13.1 (12.0-16.0) gm/dl Hct 41.3 (35-47) % MCV 97.6 (78-100) fl MCH 31.0 (26-32) pg MCHC 31.7 L (32-36) g/dl RDW 14.5 H (11.5-14.0) % Plt Count 199 (150-450) K/mm3 MPV 11.1 H (7.5-11.0) fl Gran % 53.1 (36.0-66.0) % Eos # (Auto) 0.12 (0-0.5) Absolute Lymphs (auto) 1.34 (1.0-4.6) Absolute Monos (auto) 0.86 (0.0-1.3) Lymphocytes % 26.7 (24.0-44.0) % Monocytes % 17.2 H (0.0-12.0) % Eosinophils % 2.4 (0.00-5.0) % Basophils % 0.6 (0.0-0.4) % Absolute Granulocytes 2.66 (1.4-6.9) Basophils # 0.03 (0-0.4) PT 14.0 H (9.4-12.5) SECONDS INR 1.19 (0.8-3.0) APTT 35.3 (25.1-36.5) SECONDS Sodium 133 L (137-145) mmol/L Potassium 4.8 (3.5-5.1) mmol/L Chloride 101 (98-107) mmol/L Carbon Dioxide 26 (22-30) mmol/L Anion Gap 11.4 (5-15) MEQ/L BUN 20 H (7-17) mg/dL Creatinine 0.71 (0.52-1.04) mg/dL Estimated GFR > 60.0 ML/MIN Glucose 110 H (74-106) mg/dL Lactic Acid (0.4-2.0) Calcium 8.5 (8.4-10.2) mg/dL Total Bilirubin 0.60 (0.2-1.3) mg/dL AST 41 H (14-36) U/L ALT 7 (0-35) U/L Alkaline Phosphatase 75 (38-126) U/L Troponin I (0.000-0.034) ng/mL NT-Pro-B Natriuret Pep 342 (0-1800) pg/mL Serum Total Protein 6.6 (6.3-8.2) g/dL Albumin 3.9 (3.5-5.0) g/dL Urinalys Dipstick Clnc Urine Color (YELLOW) Urine Appearance (CLEAR) Urine pH (5-6) Ur Specific [place] (1.005-1.025) POC Urine Protein Conf (Negative) Urine Ketones (NEGATIVE) Urine Nitrite (NEGATIVE) Urine Bilirubin (NEGATIVE) Urine Urobilinogen (0-1) mg/dL Urine Leukocytes (NEGATIVE) Urine WBC (Auto) (0-5) /HPF Urine RBC (Auto) (0-2) /HPF U Epithel Cells (Auto) (FEW) /HPF Urine Bacteria (Auto) (NEGATIVE) /HPF Urine RBC (0-5) Lonnie/ul Urine Mucus (Auto) (NEGATIVE) /HPF Urine Glucose (NEGATIVE) mg/dL Urine Opiates Level (NEGATIVE) Ur Methadone (NEGATIVE) Urine Barbiturates (NEGATIVE) Ur Phencyclidine (PCP) (NEGATIVE) Urine Amphetamine (NEGATIVE) U Benzodiazepine Level (NEGATIVE) Urine Cocaine (NEGATIVE) Urine Marijuana (THC) (NEGATIVE) Influenza Type A Ag (NEGATIVE) Influenza Type B Ag (NEGATIVE) RSV (PCR) (Negative) SARS-CoV-2 (PCR) (NEGATIVE) 11/15/21 11/15/21 Range/Units 17:08 17:01 WBC (4.0-10.5) K/mm3 RBC (4.1-5.4) M/mm3 Hgb (12.0-16.0) gm/dl Hct (35-47) % MCV (78-100) fl MCH (26-32) pg MCHC (32-36) g/dl RDW (11.5-14.0) % Plt Count (150-450) K/mm3 MPV (7.5-11.0) fl Gran % (36.0-66.0) % Eos # (Auto) (0-0.5) Absolute Lymphs (auto) (1.0-4.6) Absolute Monos (auto) (0.0-1.3) Lymphocytes % (24.0-44.0) % Monocytes % (0.0-12.0) % Eosinophils % (0.00-5.0) % Basophils % (0.0-0.4) % Absolute Granulocytes (1.4-6.9) Basophils # (0-0.4) PT (9.4-12.5) SECONDS INR (0.8-3.0) APTT (25.1-36.5) SECONDS Sodium (137-145) mmol/L Potassium (3.5-5.1) mmol/L Chloride (98-107) mmol/L Carbon Dioxide (22-30) mmol/L Anion Gap (5-15) MEQ/L BUN (7-17) mg/dL Creatinine (0.52-1.04) mg/dL Estimated GFR ML/MIN Glucose (74-106) mg/dL Lactic Acid 1.6 (0.4-2.0) Calcium (8.4-10.2) mg/dL Total Bilirubin (0.2-1.3) mg/dL AST (14-36) U/L ALT (0-35) U/L Alkaline Phosphatase (38-126) U/L Troponin I (0.000-0.034) ng/mL NT-Pro-B Natriuret Pep (0-1800) pg/mL Serum Total Protein (6.3-8.2) g/dL Albumin (3.5-5.0) g/dL Urinalys Dipstick Clnc Urine Color (YELLOW) Urine Appearance (CLEAR) Urine pH (5-6) Ur Specific [place] (1.005-1.025) POC Urine Protein Conf (Negative) Urine Ketones (NEGATIVE) Urine Nitrite (NEGATIVE) Urine Bilirubin (NEGATIVE) Urine Urobilinogen (0-1) mg/dL Urine Leukocytes (NEGATIVE) Urine WBC (Auto) (0-5) /HPF Urine RBC (Auto) (0-2) /HPF U Epithel Cells (Auto) (FEW) /HPF Urine Bacteria (Auto) (NEGATIVE) /HPF Urine RBC (0-5) Lonnie/ul Urine Mucus (Auto) (NEGATIVE) /HPF Urine Glucose (NEGATIVE) mg/dL Urine Opiates Level NEGATIVE (NEGATIVE) Ur Methadone NEGATIVE (NEGATIVE) Urine Barbiturates NEGATIVE (NEGATIVE) Ur Phencyclidine (PCP) NEGATIVE (NEGATIVE) Urine Amphetamine NEGATIVE (NEGATIVE) U Benzodiazepine Level POSITIVE (NEGATIVE) Urine Cocaine NEGATIVE (NEGATIVE) Urine Marijuana (THC) NEGATIVE (NEGATIVE) Influenza Type A Ag (NEGATIVE) Influenza Type B Ag (NEGATIVE) RSV (PCR) (Negative) SARS-CoV-2 (PCR) (NEGATIVE) - Progress Progress Note: 11/15/21 18:[address] Pickett Wants to start Remdisavir for Covid/Rocephin for UTI Full code per son 11/15/21 18:58 Admitting orders written Counseled pt/family regarding: lab results, diagnosis, need for follow-up, rad results - Departure Referrals: MERRICK JOVEL [Primary Care Provider] - Follow up/PCP as directed
[2021-11-15 17:14] LABS: Absolute Neutrophil Ct (ANC) 2.66 (1.4-6.9); Basophil (Absolute #) 0.03 (0-0.4); Eosinophil % 2.4 % (0.00-5.0); Eosinophil (Absolute #) 0.12 (0-0.5); Hematocrit 41.3 % (35-47); Hemoglobin 13.1 gm/dl (12.0-16.0); Lymphocyte (Absolute #) 1.34 (1.0-4.6); Lymphocytes % 26.7 % (24.0-44.0); Mean Cell Volume 97.6 fl (78-100); Mean Corpuscular Hgb Concent. 31.7 g/dl (32-36); Mean Platelet Volume 11.1 fl (7.5-11.0); Monocyte (Absolute #) 0.86 (0.0-1.3); Monocytes % 17.2 % (0.0-12.0); Neutrophil % 53.1 % (36.0-66.0); Platelet Count 199 K/mm3 (150-450); Red Blood Count 4.23 M/mm3 (4.1-5.4); Red Cell Distribution Width 14.5 % (11.5-14.0)
[2021-11-15 17:24] LABS: INR 1.19 (0.8-3.0)
[2021-11-15 17:27] LABS: ALBUMIN 3.9 g/dL (3.5-5.0); ALKALINE PHOSPHATASE 75 U/L (38-126); ANION GAP 11.4 MEQ/L (5-15); BLOOD UREA NITROGEN 20 mg/dL (7-17); CHLORIDE 101 mmol/L (98-107); Calcium 8.5 mg/dL (8.4-10.2); Carbon Dioxide 26 mmol/L (22-30); Creatinine 1 0.71 mg/dL (0.52-1.04); EST GLOMERULAR FILTRATION RATE > 60.0 ML/MIN; Glucose 110 mg/dL (74-106); NT PRO BNP 342 pg/mL (0-1800); PTT 35.3 SECONDS (25.1-36.5); Potassium 4.8 mmol/L (3.5-5.1); SGOT/AST 41 U/L (14-36); SGPT/ALT 7 U/L (0-35); SODIUM 133 mmol/L (137-145); Total Protein 6.6 g/dL (6.3-8.2)
[2021-11-15 17:58] LABS: Bacteria RARE /HPF (NEGATIVE); Mucus SLIGHT /HPF (NEGATIVE); RBC 0-2 /HPF (0-2)
[2021-11-15 18:01] LABS: Appearance CLEAR (CLEAR); Bilirubin NEGATIVE (NEGATIVE); Glucose NEGATIVE (NEGATIVE); Ketones NEGATIVE (NEGATIVE); RBC NEGATIVE Ery/ul (0-5); Specific Gravity 1.025 (1.005-1.025)
[2021-11-15 18:02] LABS: Nitrite POSITIVE (NEGATIVE); Protein,Urine Dip NEGATIVE (Negative); Urobilinogen 2 mg/dL (0-1)
[2021-11-15 18:10] LABS: Benzodiazepine,Urine POSITIVE (NEGATIVE); Cocaine,Urine NEGATIVE (NEGATIVE); Methadone,Urine NEGATIVE (NEGATIVE); Opiate,Urine NEGATIVE (NEGATIVE); PCP,Urine NEGATIVE (NEGATIVE); THC,Urine NEGATIVE (NEGATIVE)
[2021-11-15 18:11] LABS: Dipstick done @ ? MAIN LAB
[2021-11-15 18:12] LABS: Barbiturate,Urine NEGATIVE (NEGATIVE)
[2021-11-15 18:15] LABS: INFLUENZA A NEGATIVE (NEGATIVE); INFLUENZA B NEGATIVE (NEGATIVE); RESPIRATORY SYNCTIAL VIRUS NEGATIVE (Negative)
[2021-11-15 18:15] LABS: Amphetamine,Urine NEGATIVE (NEGATIVE)
[2021-11-15 18:33] LABS: SARS-CoV-2 Xpert Express POSITIVE (NEGATIVE)
[2021-11-15] MEDS ORDERED: Zofran 4 MG/2 ML VIAL IV PRN (18:48)
[2021-11-15] MEDS ORDERED: TYLENOL 325 MG PO PRN (18:48)
[2021-11-15] MEDS ORDERED: REMDESIVIR 200 MG in Sodium Chloride 0.9% 250 ML 250 ML IV ONE (18:53)
[2021-11-15] MEDS ORDERED: DECADRON 10MG INJ. IV ONE (18:54)
[2021-11-15] MEDS ORDERED: DECADRON 10MG INJ. ONE (18:55)
[2021-11-15] MEDS ORDERED: Sodium Chloride 0.9% 1000 ML 1,000 ML IV SCH (19:00)
[2021-11-15] MEDS: Sodium Chloride 0.9% 1000 ML 1,000 ML IV SCH (19:39)
[2021-11-16 05:01] LABS: Hematocrit 42.8 % (35-47); Hemoglobin 13.5 gm/dl (12.0-16.0); Mean Cell Volume 97.1 fl (78-100); Mean Corpuscular Hemoglobin 30.6 pg (26-32); Mean Corpuscular Hgb Concent. 31.5 g/dl (32-36); Mean Platelet Volume 11.5 fl (7.5-11.0); Platelet Count 193 K/mm3 (150-450); Red Blood Count 4.41 M/mm3 (4.1-5.4); Red Cell Distribution Width 14.3 % (11.5-14.0); White Blood Count 4.2 K/mm3 (4.0-10.5)
[2021-11-16] MEDS: Sodium Chloride 0.9% 1000 ML 1,000 ML IV SCH ×2 (05:03→15:25)
[2021-11-16 05:18] LABS: ALBUMIN 3.8 g/dL (3.5-5.0); ALKALINE PHOSPHATASE 81 U/L (38-126); ANION GAP 11.1 MEQ/L (5-15); BLOOD UREA NITROGEN 14 mg/dL (7-17); CHLORIDE 108 mmol/L (98-107); Calcium 8.2 mg/dL (8.4-10.2); Carbon Dioxide 22 mmol/L (22-30); Creatinine 1 0.54 mg/dL (0.52-1.04); EST GLOMERULAR FILTRATION RATE > 60.0 ML/MIN; Glucose 130 mg/dL (74-106); Potassium 4.2 mmol/L (3.5-5.1); SGOT/AST 30 U/L (14-36); SODIUM 137 mmol/L (137-145); Total Protein 6.5 g/dL (6.3-8.2)
[2021-11-16 05:20] LABS: SGPT/ALT < 4 U/L (0-35)
--- NOTE | 2021-11-16 08:43 | PCM.HP ---
History of Present Illness - Chief Complaint Chief Complaint: covis/weakness History of Present Illness: is a 81 year old female pt of mine from [facility] with PMHx Parkinson's disease with dementia, anemia, HTN, hypothyroidism, and OA who was admitted through ER with COVID 19. Per the ER note, pt was increasingly confused x1d with SLAUGHTER and generalized weakness. She had recently finished antibiotics for a UTI. Her son was Covid positive, and when her test at home was positive she was brought to ER and found to have a positive test here. In the ER her Na was 133. Today she does not remember why she is here or where she is. Does know it is October 2021. - Review of Systems All Other Systems: Unable due to dementia Medications & Allergies Home Medications: Home Medication List Carbidopa/Levodopa [Carbidopa-Levodopa 25-100 Tab] 1 ea DAILY 09/15/18 [History Confirmed 11/15/21] Donepezil HCl 10 mg PO DAILY 09/15/18 [History Confirmed 11/16/21] Levothyroxine Sodium 50 mg DAILY 09/15/18 [History Confirmed 11/15/21] Rasagiline Mesylate 1 mg PO DAILY 09/15/18 [History Confirmed 11/16/21] Buspirone HCl 5 mg [Buspar 5 mg] 5 mg PO BID 10/14/20 [History Confirmed 11/16/21] Bimatoprost 0.01% [Lumigan 0.01% 2.5 ml] 1 drop DROPS HS 11/16/21 [History Confirmed 11/16/21] Allergies/Adverse Reactions: Allergies Allergy/AdvReac Type Severity Reaction Status Date / Time rice Allergy Uncoded 10/14/20 20:08 - Past Medical History Past Medical History: Yes Neurological History: Dementia ENT History: Cataracts Cardiac History: Hypertension, Myocardial Infarction ([place]) Respiratory History: No Pertinent History Endocrine Medical History: Hypoglycemia Musculoskelatal History: Osteoarthritis GI Medical History: No Pertinent History History: No Pertinent History Pyscho-Social History: No Pertinent History Comment: PMHX: FREQUENT UTIs. SX HX: CHOLECYSTECTOMY, HYSTERECTOMY, BACK SURGERY, FOOT SURGERY (PER PATIENT CUT BONES THAT GREW UP ON THE TOP OF HER FOOT OFF) - Female History Are you now?: No - Past Surgical History Past Surgical History: Yes Neuro Surgical History: No Pertinent History Cardiac History: No Pertinent History Respiratory Surgery: No Pertinent History GI Surgical History: Cholecystectomy Genitourinary Surgical Hx: No Pertinent History Musculskeletal Surgical Hx: Orthopedic Surgery Female Surgical History: Hysterectomy Other Surgical History: back surgery , foot surgery - Social History Smoking Status: Never smoker Exposure to second hand smoke: No Alcohol: None Drug Use: none Significant Family History: no pertinent family hx - Physical Exam Vital Signs: Vital Signs - 24 hr Temp Pulse Resp BP Pulse Ox 11/16/21 07:52 97.1 F 56 L 16 158/95 95 11/16/21 07:47 16 11/16/21 06:57 93 L 11/16/21 06:00 62 16 150/77 93 L 11/16/21 04:00 59 L 16 150/77 94 L 11/16/21 02:00 97.7 F 56 L 16 146/76 94 L 11/16/21 01:54 98.1 F 59 L 16 144/76 96 11/16/21 00:00 98.1 F 54 L 18 154/78 98 11/15/21 23:10 97 11/15/21 23:08 20 154/87 97 11/15/21 22:17 97.9 F 66 20 180/89 95 11/15/21 22:00 61 20 155/81 97 11/15/21 21:18 92 L 11/15/21 21:16 92 L 11/15/21 18:58 98 11/15/21 18:48 58 L 18 162/82 96 11/15/21 18:00 56 L 16 97 11/15/21 17:25 57 L 17 130/72 95 11/15/21 16:25 99.4 F 72 20 146/85 98 General Appearance: no apparent distress, alert Neurologic Exam: cooperative, disoriented, other (diminished facies as usual) Ears, Nose, Throat Exam: moist mucous membranes Respiratory Exam: normal breath sounds, lungs clear, No crackles/rales, No rhonchi, No wheezing Cardiovascular Exam: regular rate/rhythm, normal heart sounds, No murmur Gastrointestinal/Abdomen Exam: soft, normal bowel sounds, No tenderness, No distention, No mass, No guarding, No rebound Extremity Exam: normal inspection, No pedal edema, No swelling Skin Exam: normal color, warm, dry, No rash Results - Labs Lab/Micro Results: Lab Results-Last 24 Hours 11/15/21 11/15/21 11/15/21 Range/Units 17:01 17:08 17:09 WBC 5.0 (4.0-10.5) K/mm3 RBC 4.23 (4.1-5.4) M/mm3 Hgb 13.1 (12.0-16.0) gm/dl Hct 41.3 (35-47) % MCV 97.6 (78-100) fl MCH 31.0 (26-32) pg MCHC 31.7 L (32-36) g/dl RDW 14.5 H (11.5-14.0) % Plt Count 199 (150-450) K/mm3 MPV 11.1 H (7.5-11.0) fl Gran % 53.1 (36.0-66.0) % Eos # (Auto) 0.12 (0-0.5) Absolute Lymphs (auto) 1.34 (1.0-4.6) Absolute Monos (auto) 0.86 (0.0-1.3) Lymphocytes % 26.7 (24.0-44.0) % Monocytes % 17.2 H (0.0-12.0) % Eosinophils % 2.4 (0.00-5.0) % Basophils % 0.6 (0.0-0.4) % Absolute Granulocytes 2.66 (1.4-6.9) Basophils # 0.03 (0-0.4) PT (9.4-12.5) SECONDS INR (0.8-3.0) APTT (25.1-36.5) SECONDS D-Dimer (215-500) ng/mL Sodium (137-145) mmol/L Potassium (3.5-5.1) mmol/L Chloride (98-107) mmol/L Carbon Dioxide (22-30) mmol/L Anion Gap (5-15) MEQ/L BUN (7-17) mg/dL Creatinine (0.52-1.04) mg/dL Estimated GFR ML/MIN Glucose (74-106) mg/dL Lactic Acid 1.6 (0.4-2.0) Calcium (8.4-10.2) mg/dL Total Bilirubin (0.2-1.3) mg/dL AST (14-36) U/L ALT (0-35) U/L Alkaline Phosphatase (38-126) U/L Troponin I (0.000-0.034) ng/mL NT-Pro-B Natriuret Pep (0-1800) pg/mL Serum Total Protein (6.3-8.2) g/dL Albumin (3.5-5.0) g/dL Urinalys Dipstick Clnc Urine Color (YELLOW) Urine Appearance (CLEAR) Urine pH (5-6) Ur Specific [place] (1.005-1.025) POC Urine Protein Conf (Negative) Urine Ketones (NEGATIVE) Urine Nitrite (NEGATIVE) Urine Bilirubin (NEGATIVE) Urine Urobilinogen (0-1) mg/dL Urine Leukocytes (NEGATIVE) Urine WBC (Auto) (0-5) /HPF Urine RBC (Auto) (0-2) /HPF U Epithel Cells (Auto) (FEW) /HPF Urine Bacteria (Auto) (NEGATIVE) /HPF Urine RBC (0-5) Lonnie/ul Urine Mucus (Auto) (NEGATIVE) /HPF Urine Glucose (NEGATIVE) mg/dL Urine Opiates Level NEGATIVE (NEGATIVE) Ur Methadone NEGATIVE (NEGATIVE) Urine Barbiturates NEGATIVE (NEGATIVE) Ur Phencyclidine (PCP) NEGATIVE (NEGATIVE) Urine Amphetamine NEGATIVE (NEGATIVE) U Benzodiazepine Level POSITIVE (NEGATIVE) Urine Cocaine NEGATIVE (NEGATIVE) Urine Marijuana (THC) NEGATIVE (NEGATIVE) Influenza Type A Ag (NEGATIVE) Influenza Type B Ag (NEGATIVE) RSV (PCR) (Negative) SARS-CoV-2 (PCR) (NEGATIVE) 11/15/21 11/15/21 11/15/21 Range/Units 17:09 17:09 17:09 WBC (4.0-10.5) K/mm3 RBC (4.1-5.4) M/mm3 Hgb (12.0-16.0) gm/dl Hct (35-47) % MCV (78-100) fl MCH (26-32) pg MCHC (32-36) g/dl RDW (11.5-14.0) % Plt Count (150-450) K/mm3 MPV (7.5-11.0) fl Gran % (36.0-66.0) % Eos # (Auto) (0-0.5) Absolute Lymphs (auto) (1.0-4.6) Absolute Monos (auto) (0.0-1.3) Lymphocytes % (24.0-44.0) % Monocytes % (0.0-12.0) % Eosinophils % (0.00-5.0) % Basophils % (0.0-0.4) % Absolute Granulocytes (1.4-6.9) Basophils # (0-0.4) PT 14.0 H (9.4-12.5) SECONDS INR 1.19 (0.8-3.0) APTT 35.3 (25.1-36.5) SECONDS D-Dimer (215-500) ng/mL Sodium 133 L (137-145) mmol/L Potassium 4.8 (3.5-5.1) mmol/L Chloride 101 (98-107) mmol/L Carbon Dioxide 26 (22-30) mmol/L Anion Gap 11.4 (5-15) MEQ/L BUN 20 H (7-17) mg/dL Creatinine 0.71 (0.52-1.04) mg/dL Estimated GFR > 60.0 ML/MIN Glucose 110 H (74-106) mg/dL Lactic Acid (0.4-2.0) Calcium 8.5 (8.4-10.2) mg/dL Total Bilirubin 0.60 (0.2-1.3) mg/dL AST 41 H (14-36) U/L ALT 7 (0-35) U/L Alkaline Phosphatase 75 (38-126) U/L Troponin I < 0.012 (0.000-0.034) ng/mL NT-Pro-B Natriuret Pep 342 (0-1800) pg/mL Serum Total Protein 6.6 (6.3-8.2) g/dL Albumin 3.9 (3.5-5.0) g/dL Urinalys Dipstick Clnc Urine Color (YELLOW) Urine Appearance (CLEAR) Urine pH (5-6) Ur Specific [place] (1.005-1.025) POC Urine Protein Conf (Negative) Urine Ketones (NEGATIVE) Urine Nitrite (NEGATIVE) Urine Bilirubin (NEGATIVE) Urine Urobilinogen (0-1) mg/dL Urine Leukocytes (NEGATIVE) Urine WBC (Auto) (0-5) /HPF Urine RBC (Auto) (0-2) /HPF U Epithel Cells (Auto) (FEW) /HPF Urine Bacteria (Auto) (NEGATIVE) /HPF Urine RBC (0-5) Lonnie/ul Urine Mucus (Auto) (NEGATIVE) /HPF Urine Glucose (NEGATIVE) mg/dL Urine Opiates Level (NEGATIVE) Ur Methadone (NEGATIVE) Urine Barbiturates (NEGATIVE) Ur Phencyclidine (PCP) (NEGATIVE) Urine Amphetamine (NEGATIVE) U Benzodiazepine Level (NEGATIVE) Urine Cocaine (NEGATIVE) Urine Marijuana (THC) (NEGATIVE) Influenza Type A Ag (NEGATIVE) Influenza Type B Ag (NEGATIVE) RSV (PCR) (Negative) SARS-CoV-2 (PCR) (NEGATIVE) 11/15/21 11/15/21 11/15/21 Range/Units 17:30 17:33 19:16 WBC (4.0-10.5) K/mm3 RBC (4.1-5.4) M/mm3 Hgb (12.0-16.0) gm/dl Hct (35-47) % MCV (78-100) fl MCH (26-32) pg MCHC (32-36) g/dl RDW (11.5-14.0) % Plt Count (150-450) K/mm3 MPV (7.5-11.0) fl Gran % (36.0-66.0) % Eos # (Auto) (0-0.5) Absolute Lymphs (auto) (1.0-4.6) Absolute Monos (auto) (0.0-1.3) Lymphocytes % (24.0-44.0) % Monocytes % (0.0-12.0) % Eosinophils % (0.00-5.0) % Basophils % (0.0-0.4) % Absolute Granulocytes (1.4-6.9) Basophils # (0-0.4) PT (9.4-12.5) SECONDS INR (0.8-3.0) APTT (25.1-36.5) SECONDS D-Dimer (215-500) ng/mL Sodium (137-145) mmol/L Potassium (3.5-5.1) mmol/L Chloride (98-107) mmol/L Carbon Dioxide (22-30) mmol/L Anion Gap (5-15) MEQ/L BUN (7-17) mg/dL Creatinine (0.52-1.04) mg/dL Estimated GFR ML/MIN Glucose (74-106) mg/dL Lactic Acid (0.4-2.0) Calcium (8.4-10.2) mg/dL Total Bilirubin (0.2-1.3) mg/dL AST (14-36) U/L ALT (0-35) U/L Alkaline Phosphatase (38-126) U/L Troponin I < 0.012 (0.000-0.034) ng/mL NT-Pro-B Natriuret Pep (0-1800) pg/mL Serum Total Protein (6.3-8.2) g/dL Albumin (3.5-5.0) g/dL Urinalys Dipstick Clnc MAIN LAB Urine Color YELLOW (YELLOW) Urine Appearance CLEAR (CLEAR) Urine pH 6.0 (5-6) Ur Specific [place] 1.025 (1.005-1.025) POC Urine Protein Conf NEGATIVE (Negative) Urine Ketones NEGATIVE (NEGATIVE) Urine Nitrite POSITIVE (NEGATIVE) Urine Bilirubin NEGATIVE (NEGATIVE) Urine Urobilinogen 2 (0-1) mg/dL Urine Leukocytes NEGATIVE (NEGATIVE) Urine WBC (Auto) 11-15 (0-5) /HPF Urine RBC (Auto) 0-2 (0-2) /HPF U Epithel Cells (Auto) NONE (FEW) /HPF Urine Bacteria (Auto) RARE (NEGATIVE) /HPF Urine RBC NEGATIVE (0-5) Lonnie/ul Urine Mucus (Auto) SLIGHT (NEGATIVE) /HPF Urine Glucose NEGATIVE (NEGATIVE) mg/dL Urine Opiates Level (NEGATIVE) Ur Methadone (NEGATIVE) Urine Barbiturates (NEGATIVE) Ur Phencyclidine (PCP) (NEGATIVE) Urine Amphetamine (NEGATIVE) U Benzodiazepine Level (NEGATIVE) Urine Cocaine (NEGATIVE) Urine Marijuana (THC) (NEGATIVE) Influenza Type A Ag NEGATIVE (NEGATIVE) Influenza Type B Ag NEGATIVE (NEGATIVE) RSV (PCR) NEGATIVE (Negative) SARS-CoV-2 (PCR) POSITIVE A (NEGATIVE) 11/16/21 11/16/21 11/16/21 Range/Units 04:34 04:34 05:09 WBC 4.2 (4.0-10.5) K/mm3 RBC 4.41 (4.1-5.4) M/mm3 Hgb 13.5 (12.0-16.0) gm/dl Hct 42.8 (35-47) % MCV 97.1 (78-100) fl MCH 30.6 (26-32) pg MCHC 31.5 L (32-36) g/dl RDW 14.3 H (11.5-14.0) % Plt Count 193 (150-450) K/mm3 MPV 11.5 H (7.5-11.0) fl Gran % (36.0-66.0) % Eos # (Auto) (0-0.5) Absolute Lymphs (auto) (1.0-4.6) Absolute Monos (auto) (0.0-1.3) Lymphocytes % (24.0-44.0) % Monocytes % (0.0-12.0) % Eosinophils % (0.00-5.0) % Basophils % (0.0-0.4) % Absolute Granulocytes (1.4-6.9) Basophils # (0-0.4) PT (9.4-12.5) SECONDS INR (0.8-3.0) APTT (25.1-36.5) SECONDS D-Dimer 874 H* (215-500) ng/mL Sodium 137 (137-145) mmol/L Potassium 4.2 (3.5-5.1) mmol/L Chloride 108 H (98-107) mmol/L Carbon Dioxide 22 (22-30) mmol/L Anion Gap 11.1 (5-15) MEQ/L BUN 14 (7-17) mg/dL Creatinine 0.54 (0.52-1.04) mg/dL Estimated GFR > 60.0 ML/MIN Glucose 130 H (74-106) mg/dL Lactic Acid (0.4-2.0) Calcium 8.2 L (8.4-10.2) mg/dL Total Bilirubin 0.50 (0.2-1.3) mg/dL AST 30 (14-36) U/L ALT < 4 (0-35) U/L Alkaline Phosphatase 81 (38-126) U/L Troponin I (0.000-0.034) ng/mL NT-Pro-B Natriuret Pep (0-1800) pg/mL Serum Total Protein 6.5 (6.3-8.2) g/dL Albumin 3.8 (3.5-5.0) g/dL Urinalys Dipstick Clnc Urine Color (YELLOW) Urine Appearance (CLEAR) Urine pH (5-6) Ur Specific [place] (1.005-1.025) POC Urine Protein Conf (Negative) Urine Ketones (NEGATIVE) Urine Nitrite (NEGATIVE) Urine Bilirubin (NEGATIVE) Urine Urobilinogen (0-1) mg/dL Urine Leukocytes (NEGATIVE) Urine WBC (Auto) (0-5) /HPF Urine RBC (Auto) (0-2) /HPF U Epithel Cells (Auto) (FEW) /HPF Urine Bacteria (Auto) (NEGATIVE) /HPF Urine RBC (0-5) Lonnie/ul Urine Mucus (Auto) (NEGATIVE) /HPF Urine Glucose (NEGATIVE) mg/dL Urine Opiates Level (NEGATIVE) Ur Methadone (NEGATIVE) Urine Barbiturates (NEGATIVE) Ur Phencyclidine (PCP) (NEGATIVE) Urine Amphetamine (NEGATIVE) U Benzodiazepine Level (NEGATIVE) Urine Cocaine (NEGATIVE) Urine Marijuana (THC) (NEGATIVE) Influenza Type A Ag (NEGATIVE) Influenza Type B Ag (NEGATIVE) RSV (PCR) (Negative) SARS-CoV-2 (PCR) (NEGATIVE) - Radiology Impressions Radiology Exams & Impressions: Radiology Procedures Category Date Time Status CHEST WITHOUT CONTRAST [CT] Stat Exams 11/15/21 17:40 Taken HEAD WITHOUT CONTRAST [CT] Stat Exams 11/15/21 17:35 Taken - Other Procedures and Tests Respiratory Therapy 11/15/21 21:17 Oxygen Nasal Cannula 2 lpm Assessment/Plan (1) COVID-19 Current Visit: Yes Status: Acute Assessment & Plan: On dexamethasone and remdesivir. D-dimer elevated but no PEs; on lovenox 40mg SC daily. Code(s): U07.1 - COVID-19 (2) UTI (urinary tract infection) Current Visit: No Status: Acute Qualifiers: Urinary tract infection type: acute cystitis Hematuria presence: without hematuria Qualified Code(s): N30.00 - Acute cystitis without hematuria Assessment & Plan: Pt starting cefdinir; urine culture pending. Code(s): N39.0 - URINARY TRACT INFECTION, SITE NOT SPECIFIED (3) Weakness Current Visit: Yes Status: Acute Code(s): R53.1 - WEAKNESS (4) Hyponatremia Current Visit: Yes Status: Resolved Code(s): E87.1 - HYPO-OSMOLALITY AND HYPONATREMIA (5) Parkinson's disease dementia Current Visit: Yes Status: Chronic Qualifiers: Dementia behavioral disturbance: without behavioral disturbance Qualified Code(s): G20 - Parkinson's disease; F02.80 - Dementia in other diseases classified elsewhere without behavioral disturbance Code(s): G20 - PARKINSON'S DISEASE; F02.80 - DEMENTIA IN OTH DISEASES CLASSD ELSWHR W/O BEHAVRL DISTURB
--- NOTE | 2021-11-16 08:43 | XRAY ---
Indication: Lethargy and dementia. Positive Covid 19. Multiple contiguous axial images obtained through the head without contrast. Comparison: October 14, 2020. Again age-appropriate global atrophy and mild periventricular degenerative micro-ischemia bilaterally. No acute intracranial hemorrhage, abnormal extra-axial fluid collection, or mass effect. Fourth ventricle is midline without hydrocephalus. Bony calvarium intact. Visualized paranasal sinuses and mastoid air cells are clear. Impression: Continued nonacute senile brain. Comment: Preliminary interpretation made by [facility]. No critical discrepancy.
--- NOTE | 2021-11-16 08:45 | XRAY ---
Indication: Short of breath. Positive Covid 19. Dementia. Multiple contiguous axial images obtained through the chest without contrast. Comparison: October 14, 2020. Lungs again demonstrates mild bilateral dependent atelectasis and tiny right upper lobe calcified granuloma. No new pulmonary mass/nodule, infiltrate, or effusion. Heart is not enlarged. Aorta remains mildly arteriosclerotic without aneurysm. Stable tiny mediastinal and right hilar calcified nodes. No pathologic mediastinal lymphadenopathy. New moderate-sized hiatal hernia with partial intrathoracic stomach. Bony thorax intact again with osteopenia, mild degenerative changes of the spine, mild bilateral shoulder degenerative arthropathy, and old bilateral rib fractures. Limited upper abdomen again demonstrates small hepatic cyst. Impression: 1. New hiatal hernia with partial intrathoracic stomach. 2. Again chronic bony findings, small hepatic cyst, and old granulomatous disease. 3. Remaining CT chest without contrast exam is negative. Comment: Preliminary interpretation made by [facility]. No critical discrepancy.
[2021-11-16] MEDS: ROCEPHIN 1 Gm-D5w 50 ml Bag** 1 G/50 ML IVPB IV SCH (09:37)
[2021-11-16] MEDS: PROTONIX 40 MG IV IV SCH (09:37)
[2021-11-16] MEDS: ENOXAPARIN SODIUM SQ SCH (09:38)
[2021-11-16] MEDS: Decadron 4 MG INJ IV SCH (09:38)
[2021-11-16] MEDS ORDERED: MEDICATION INTERVENTION MC SCH (09:45)
[2021-11-16] MEDS: Aricept 10 MG PO SCH (09:58)
[2021-11-16] MEDS: BUSPAR 5 MG PO SCH ×2 (09:58→22:01)
[2021-11-16] MEDS: Sinemet 25/100 MG PO SCH (09:58)
[2021-11-16] MEDS: SYNTHROID 50 MCG PO SCH (10:00)
[2021-11-16] MEDS ORDERED: RASAGILINE MESYLATE 1 MG PO SCH (10:00)
[2021-11-16] MEDS ORDERED: REMDESIVIR 100 MG in Sodium Chloride 0.9% 100 ML BAG 100 ML IV SCH (19:00)
[2021-11-16] MEDS ORDERED: LUMIGAN 0.01% 2.5 ML OP SCH (22:00)
[2021-11-17 05:33] LABS: BLOOD UREA NITROGEN 12 mg/dL (7-17); CHLORIDE 111 mmol/L (98-107); Calcium 8.4 mg/dL (8.4-10.2); Carbon Dioxide 26 mmol/L (22-30); Creatinine 1 0.58 mg/dL (0.52-1.04); EST GLOMERULAR FILTRATION RATE > 60.0 ML/MIN; Glucose 84 mg/dL (74-106); Potassium 3.7 mmol/L (3.5-5.1); SODIUM 142 mmol/L (137-145)
[2021-11-17] MEDS ORDERED: APRESOLINE 20 MG/ML INJ IV PRN (08:24)
--- NOTE | 2021-11-17 08:47 | PCM.DS ---
Discharge Summary Date of Admission: 11/15/21 20:15 Admitting Physician: MERRICK JOVEL Primary Care Provider: MERRICK JOVEL Allergies Allergies rice Allergy (Uncoded 10/14/20 20:08) Hospital Summary - Hospital Course Hospital Course: Pt is an 81 yo female with Parkinson's with dementia who was admitted through ER with 1d of weakness and SLAUGHTER, found to have COvid and UTI. She was given IV rocephin, although it wasn't started until the next morning. She was put on lovenox 40mg SC daily. Her respiratory system is at baseline and she has not been on oxygen. She has been on IV remdesivir and dexamethasone. She will not continue anticoagulation at home as she is not at especially high risk for DVT/PE. Her urine culture grew E. coli, susceptible to first and third generation cephalosporins, so she will be sent home on PO keflex, starting 24h after t david's dose of rocephin (completed 2d of rocephin here). She is up with her walker. Pt feels she is at baseline. Will be discharged to home today and f/u with me in 1 week. - Vitals & Intake/Output Vital Signs: Vital Signs Temperature 97.9 F 11/17/21 07:29 Pulse Rate 50 L 11/17/21 07:29 Respiratory Rate 16 11/17/21 07:46 Blood Pressure 170/74 11/17/21 07:29 O2 Sat by Pulse Oximetry 93 L 11/17/21 07:39 Intake & Output: Intake & Output 11/14/21 11/15/21 11/16/21 11/17/21 11:59 11:59 11:59 11:59 Intake Total 1849 2205 Output Total 300 Balance 1549 2205 Weight 61 kg - Lab Result Diagrams: 11/16/21 04:34 11/17/21 04:30 Lab Results-Last 24 Hrs: Lab Results-Last 24 Hours 11/17/21 Range/Units 04:30 Sodium 142 (137-145) mmol/L Potassium 3.7 (3.5-5.1) mmol/L Chloride 111 H (98-107) mmol/L Carbon Dioxide 26 (22-30) mmol/L Anion Gap 9.0 (5-15) MEQ/L BUN 12 (7-17) mg/dL Creatinine 0.58 (0.52-1.04) mg/dL Estimated GFR > 60.0 ML/MIN Glucose 84 (74-106) mg/dL Calcium 8.4 (8.4-10.2) mg/dL Micro Results-Entire Visit: Microbiology 11/15/21 19:16 Blood Culture - Preliminary Blood NO GROWTH TO DATE 11/15/21 19:16 Blood Culture - Preliminary Blood NO GROWTH TO DATE 11/15/21 17:08 Urine Culture - Final Catherized Escherichia Coli - Radiology Exams Ordered Rad Exams-Entire Visit: Radiology Procedures Category Date Time Status CHEST WITHOUT CONTRAST [CT] Stat Exams 11/15/21 17:40 Completed HEAD WITHOUT CONTRAST [CT] Stat Exams 11/15/21 17:35 Completed - Procedures and Test Procedures and Tests throughout Hospitalization: Therapy Orders & Screens 11/15/21 18:48 Respiratory Therapy Consult ROUTINE Comment: Reason For Exam: 11/15/21 21:17 Oxygen Nasal Cannula 2 lpm Comment: Discharge Exam General Appearance: no apparent distress, alert Neurologic Exam: disoriented (Oriented to place, but date is October 29, 2022.), other (limited affect as usual - at baseline.) Eye Exam: eyes nml inspection Ears, Nose, Throat Exam: moist mucous membranes Neck Exam: normal inspection Respiratory Exam: normal breath sounds, lungs clear, No crackles/rales, No rhonchi, No wheezing Cardiovascular Exam: regular rate/rhythm, normal heart sounds, No murmur Back Exam: normal inspection, No rash Final Diagnosis/Problem List - Final Discharge Diagnosis/Problem (1) UTI (urinary tract infection) Current Visit: No Status: Acute Assessment & Plan: I think this is her main issue and cause for her weakness. Treated with 2 days of rocephin here, and will get 5d of keflex starting tomorrow. Code(s): N39.0 - URINARY TRACT INFECTION, SITE NOT SPECIFIED (2) COVID-19 Current Visit: Yes Status: Acute Assessment & Plan: Received 2 doses IV remdesivir. Her lungs have been at baseline throughout her stay, with no O2 requirement. on lovenox prophylactic dose here, but will not send home on any anticoagulant. Code(s): U07.1 - COVID-19 (3) Weakness Current Visit: Yes Status: Acute Code(s): R53.1 - WEAKNESS (4) Parkinson's disease dementia Current Visit: Yes Status: Chronic Code(s): G20 - PARKINSON'S DISEASE; F02.80 - DEMENTIA IN OTH DISEASES CLASSD ELSWHR W/O BEHAVRL DISTURB (5) Elevated blood pressure reading without diagnosis of hypertension Current Visit: Yes Status: Acute Assessment & Plan: Has had systolic bp from 110s to 180s (x1) - in this 81 yo patient not on chronic antihypertensives, will not start a new BP med at this time. She is likely elevated due to being ill, being in the hospital, and having trouble sleeping. In this 81 yo patient at very high risk for falls, would prefer her BP not to drop too low. Code(s): R03.0 - ELEVATED BLOOD-PRESSURE READING, W/O DIAGNOSIS OF HTN - Discharge Disposition: Home, Self-Care Condition: Stable Prescriptions: New Cephalexin Mh 500 mg [Keflex 500 mg] 500 mg PO Q6H #20 cap Continue Rasagiline Mesylate 1 mg PO DAILY Levothyroxine Sodium 50 mg DAILY Donepezil HCl 10 mg PO DAILY Carbidopa/Levodopa [Carbidopa-Levodopa 25-100 Tab] 1 ea DAILY Buspirone HCl 5 mg [Buspar 5 mg] 5 mg PO BID Bimatoprost 0.01% [Lumigan 0.01% 2.5 ml] 1 drop DROPS HS Follow up with: MERRICK JOVEL [Primary Care Provider] -
[2021-11-17] MEDS: ROCEPHIN 1 Gm-D5w 50 ml Bag** 1 G/50 ML IVPB IV SCH (08:49)
[2021-11-17] MEDS: SYNTHROID 50 MCG PO SCH (08:50)
[2021-11-17] MEDS: Sinemet 25/100 MG PO SCH (08:51)
[2021-11-17] MEDS: Aricept 10 MG PO SCH (08:51)
[2021-11-17] MEDS: Decadron 4 MG INJ IV SCH (08:51)
[2021-11-17] MEDS: PROTONIX 40 MG IV IV SCH (08:52)
[2021-11-17] MEDS: ENOXAPARIN SODIUM SQ SCH (08:52)
[2021-11-17] MEDS: BUSPAR 5 MG PO SCH (08:52)
[2021-11-17 10:37] VITALS: BP 148/94
[2021-11-17 13:00] VITALS: PULSE 59; O2SAT 97
== END 2021-11-17 12:50 | disposition home or self-care (01) ==
LOC: ED 16:24 → MED SURG 20:15
PROVIDERS: ADMIT Family Medicine; ATTEND Family Medicine
DX: N39.0 Urinary tract infection, site not specified (principal); U07.1 COVID-19; R53.1 Weakness; G20 Parkinson's disease; R03.0 Elevated blood-pressure reading, without diagnosis of hypertension; F02.80 Dementia in other diseases classified elsewhere, unspecified severity, without behavioral disturbance, psychotic disturbance, mood disturbance, and anxiety; D64.9 Anemia, unspecified; E03.9 Hypothyroidism, unspecified; I25.2 Old myocardial infarction; E87.1 Hypo-osmolality and hyponatremia; Z79.899 Other long term (current) drug therapy; Z20.828 Contact with and (suspected) exposure to other viral communicable diseases; Z79.01 Long term (current) use of anticoagulants
CPT/HCPCS: 0241U; 36000; 36415; 70450; 71250; 80048; 80053; 80307; 81001; 83605; 83880; 84484; 85025; 85027; 85379; 85610; 85730; 87040; 87077; 87086; 87186; 93005; 93268; 94762; 96365; 96374; 99285; G0378; J0248; J0696; J1100; J1650; A9270-GY

== ENCOUNTER 2021-11-22 16:34 | Emergency (ER) | payer MEDICARE ==
[2021-11-22 17:41] LABS: Hematocrit 43.5 % (35-47); Hemoglobin 13.7 gm/dl (12.0-16.0); Mean Cell Volume 97.1 fl (78-100); Mean Corpuscular Hemoglobin 30.6 pg (26-32); Mean Corpuscular Hgb Concent. 31.5 g/dl (32-36); Mean Platelet Volume 11.4 fl (7.5-11.0); Platelet Count 209 K/mm3 (150-450); Red Blood Count 4.48 M/mm3 (4.1-5.4); Red Cell Distribution Width 14.4 % (11.5-14.0); White Blood Count 6.5 K/mm3 (4.0-10.5)
[2021-11-22 17:47] LABS: Mucus SLIGHT /HPF (NEGATIVE); RBC 0-2 /HPF (0-2); WBC 0-2 /HPF (0-5)
[2021-11-22 17:49] LABS: Appearance CLEAR (CLEAR); Bilirubin NEGATIVE (NEGATIVE); Dipstick done @ ? MAIN LAB; Glucose NEGATIVE (NEGATIVE); Ketones TRACE (NEGATIVE); Nitrite NEGATIVE (NEGATIVE); Ph 5.5 (5-6); Protein,Urine Dip NEGATIVE (Negative); RBC NEGATIVE Ery/ul (0-5); Specific Gravity >=1.030 (1.005-1.025); Urobilinogen 0.2 mg/dL (0-1)
[2021-11-22 17:59] LABS: ALBUMIN 3.8 g/dL (3.5-5.0); ALKALINE PHOSPHATASE 94 U/L (38-126); ANION GAP 14.3 MEQ/L (5-15); BLOOD UREA NITROGEN 27 mg/dL (7-17); CHLORIDE 104 mmol/L (98-107); Calcium 9.3 mg/dL (8.4-10.2); Carbon Dioxide 25 mmol/L (22-30); Creatinine 1 0.73 mg/dL (0.52-1.04); EST GLOMERULAR FILTRATION RATE > 60.0 ML/MIN; Glucose 88 mg/dL (74-106); Potassium 4.3 mmol/L (3.5-5.1); SGOT/AST 32 U/L (14-36); SGPT/ALT 6 U/L (0-35); SODIUM 139 mmol/L (137-145); Total Protein 6.5 g/dL (6.3-8.2)
[2021-11-22 18:03] VITALS: BP 181/100
[2021-11-22 18:43] LABS: Eosinophil 6 % (0.00-3.0); Lymphocytes 28 % (24-44); Monocyte 8 % (0.0-12.0); Neutrophils 58 % (36.0-66.0); Platelet Estimate NORMAL (NORMAL); Total Cells Counted 100
[2021-11-22 18:49] VITALS: PULSE 64; O2SAT 96
--- NOTE | 2021-11-22 18:55 | ERPHSYRPT ---
- History of Present Illness Time Seen by Provider: 11/22/21 16:55 Source: patient, family Exam Limitations: other (Dementia) Patient Subjective Stated Complaint: patient poor historian due to dementia. Son states his mother was diagnosed with covid last wednesday 11/15. States he has been watching her oxygen saturation at home and has been in low 80's and back to 90's. States she has been coughing up mucus. Triage Nursing Assessment: Patient to ED with covid symptoms. Patient is confused at this time which son says is normal for patient. No cough heard at this time. Physician History: 81 years old female with history of Parkinson's disease, recent COVID-19 who was discharged few days ago is brought in the ER by son with a chief complaint of productive cough since yesterday and also noticed by caregiver earlier that her oxygen saturation was dropping in the 80s. No obvious difficulty breathing. No fever or chills reported. Patient is weak all over since Covid. No vomiting or diarrhea reported. Her oxygen saturation is around 98% on room air on presentation without any tachypnea or tachycardia. Patient has dementia with confusion which is not any worse than usual. Son also reports while she was putting her pants on she fell on the right side and hit her right wrist and forearm. Patient is complaining of mild pain with palpation. Timing/Duration: yesterday, gradual onset, worse Severity: moderate Associated Symptoms: weakness Allergies/Adverse Reactions: rice Allergy (Uncoded 11/22/21 16:58) Home Medications: Carbidopa/Levodopa [Carbidopa-Levodopa 25-100 Tab] 1 ea DAILY 09/15/18 [History] Donepezil HCl 10 mg PO DAILY 09/15/18 [History] Levothyroxine Sodium 50 mg DAILY 09/15/18 [History] Rasagiline Mesylate 1 mg PO DAILY 09/15/18 [History] Buspirone HCl 5 mg [Buspar 5 mg] 5 mg PO BID 10/14/20 [History] Bimatoprost 0.01% [Lumigan 0.01% 2.5 ml] 1 drop DROPS HS 11/16/21 [History] Hx Tetanus, Diphtheria Vaccination/Date Given: Yes Hx Influenza Vaccination/Date Given: No Hx Pneumococcal Vaccination/Date Given: No Immunizations Up to Date: Yes Travel Risk - International Travel Have you traveled outside of the country in past 3 weeks: No If Yes, where;: N - Coronavirus Screening Are you exhibiting any of the following symptoms?: Yes Close contact with a COVID-19 positive Pt in past 14-21 Days: Yes - Vaccine Status Have you recieved a Covid-19 vaccination: No - Review of Systems Constitutional: Fatigue, Weakness Respiratory: Cough All Other Systems: Unable due to dementia - Past Medical History Pertinent Past Medical History: Yes Neurological History: Dementia ENT History: Cataracts Cardiac History: Hypertension, Myocardial Infarction ([place]) Respiratory History: No Pertinent History Endocrine Medical History: Hypoglycemia Musculoskeletal History: Osteoarthritis GI Medical History: No Pertinent History History: No Pertinent History Psycho-Social History: No Pertinent History Other Medical History: PMHX: FREQUENT UTIs. SX HX: CHOLECYSTECTOMY, HYSTERECTOM Y, BACK SURGERY, FOOT SURGERY (PER PATIENT CUT BONES THAT GREW UP ON THE TOP OF HER FOOT OFF) - Past Surgical History Past Surgical History: Yes Neuro Surgical History: No Pertinent History Cardiac: No Pertinent History Respiratory: No Pertinent History Gastrointestinal: Cholecystectomy Genitourinary: No Pertinent History Musculoskeletal: Orthopedic Surgery Female Surgical History: Hysterectomy Other Surgical History: back surgery , foot surgery - Social History Smoking Status: Never smoker Exposure to second hand smoke: No Drug Use: none Patient Lives Alone: Yes Significant Family History: no pertinent family hx - Nursing Vital Signs Nursing Vital Signs: Initial Vital Signs Temperature 98.5 F 11/22/21 16:46 Pulse Rate 62 11/22/21 16:46 Respiratory Rate 25 H 11/22/21 16:46 Blood Pressure 162/92 11/22/21 16:46 O2 Sat by Pulse Oximetry 98 11/22/21 16:46 Pain Scale Pain Intensity 0 - Physical Exam General Appearance: no apparent distress, alert Eye Exam: PERRL/EOMI, eyes nml inspection Ears, Nose, Throat Exam: normal ENT inspection, pharynx normal, moist mucous membranes Neck Exam: normal inspection, supple, full range of motion Respiratory Exam: normal breath sounds, lungs clear Cardiovascular Exam: regular rate/rhythm, normal heart sounds Gastrointestinal/Abdomen Exam: soft, normal bowel sounds, No tenderness Back Exam: normal inspection, normal range of motion, No CVA tenderness Neurologic Exam: alert, cooperative, equity research associate II-XII nml as tested, sensation nml, No normal mood/affect, No motor deficits Skin Exam: normal color SpO2 Interpretation: normal SpO2: 96 O2 Delivery: Room Air - Course EKG Interpreted by Me: RATE ([id number]), Sinus Ramon, NORMAL AXIS, NORMAL INTERVALS, Other (Nonspecific T wave changes) Ordered Tests: Active Orders 24 hr Category Date Time Status Molder Meat STAT Care 11/22/21 17:46 Active EKG-ER Only STAT Care 11/22/21 17:45 Active IV Insertion STAT Care 11/22/21 17:28 Active cath [Cath for Specimen-Straight] STAT Care 11/22/21 17:33 Active CHEST 1 VIEW (PORTABLE) Stat Exams 11/22/21 17:29 Taken FOREARM Stat Exams 11/22/21 18:06 Taken WRIST (MIN 3 VIEWS) Stat Exams 11/22/21 18:06 Taken CBC W DIFF Stat Lab 11/22/21 17:37 Completed CMP Stat Lab 11/22/21 17:37 Completed CULTURE,URINE Stat Lab 11/22/21 17:33 Received Lactic Acid Stat Lab 11/22/21 17:38 Completed Manual Differential NC Stat Lab 11/22/21 17:37 Completed TROPONIN Q3H Lab 11/22/21 17:37 Completed TROPONIN Q3H Lab 11/22/21 20:30 Ordered TROPONIN Q3H Lab 11/22/21 23:30 Ordered TROPONIN Q3H Lab 11/23/21 02:30 Ordered TROPONIN Q3H Lab 11/23/21 05:30 Ordered Lab/Rad Data: Laboratory Result Diagrams 11/22/21 17:37 11/22/21 17:37 Laboratory Results 11/22/21 11/22/21 11/22/21 Range/Units 17:38 17:37 17:37 WBC (4.0-10.5) K/mm3 RBC (4.1-5.4) M/mm3 Hgb (12.0-16.0) gm/dl Hct (35-47) % MCV (78-100) fl MCH (26-32) pg MCHC (32-36) g/dl RDW (11.5-14.0) % Plt Count (150-450) K/mm3 MPV (7.5-11.0) fl Segmented Neutrophils (36.0-66.0) % Lymphocytes (Manual) (24-44) % Monocytes (Manual) (0.0-12.0) % Eosinophils (Manual) (0.00-3.0) % Platelet Estimate (NORMAL) RBC Morphology Sodium 139 (137-145) mmol/L Potassium 4.3 (3.5-5.1) mmol/L Chloride 104 (98-107) mmol/L Carbon Dioxide 25 (22-30) mmol/L Anion Gap 14.3 (5-15) MEQ/L BUN 27 H (7-17) mg/dL Creatinine 0.73 (0.52-1.04) mg/dL Estimated GFR > 60.0 ML/MIN Glucose 88 (74-106) mg/dL Lactic Acid 1.3 (0.4-2.0) Calcium 9.3 (8.4-10.2) mg/dL Total Bilirubin 0.70 (0.2-1.3) mg/dL AST 32 (14-36) U/L ALT 6 (0-35) U/L Alkaline Phosphatase 94 (38-126) U/L Troponin I < 0.012 (0.000-0.034) ng/mL Serum Total Protein 6.5 (6.3-8.2) g/dL Albumin 3.8 (3.5-5.0) g/dL Urinalys Dipstick Clnc Urine Color (YELLOW) Urine Appearance (CLEAR) Urine pH (5-6) Ur Specific [place] (1.005-1.025) POC Urine Protein Conf (Negative) Urine Ketones (NEGATIVE) Urine Nitrite (NEGATIVE) Urine Bilirubin (NEGATIVE) Urine Urobilinogen (0-1) mg/dL Urine Leukocytes (NEGATIVE) Urine WBC (Auto) (0-5) /HPF Urine RBC (Auto) (0-2) /HPF U Epithel Cells (Auto) (FEW) /HPF Urine Bacteria (Auto) (NEGATIVE) /HPF Urine RBC (0-5) Lonnie/ul Urine Mucus (Auto) (NEGATIVE) /HPF Ur Culture Indicated? Urine Glucose (NEGATIVE) mg/dL 11/22/21 11/22/21 Range/Units 17:37 17:33 WBC 6.5 (4.0-10.5) K/mm3 RBC 4.48 (4.1-5.4) M/mm3 Hgb 13.7 (12.0-16.0) gm/dl Hct 43.5 (35-47) % MCV 97.1 (78-100) fl MCH 30.6 (26-32) pg MCHC 31.5 L (32-36) g/dl RDW 14.4 H (11.5-14.0) % Plt Count 209 (150-450) K/mm3 MPV 11.4 H (7.5-11.0) fl Segmented Neutrophils 58 (36.0-66.0) % Lymphocytes (Manual) 28 (24-44) % Monocytes (Manual) 8 (0.0-12.0) % Eosinophils (Manual) 6 H (0.00-3.0) % Platelet Estimate NORMAL (NORMAL) RBC Morphology NORMAL Sodium (137-145) mmol/L Potassium (3.5-5.1) mmol/L Chloride (98-107) mmol/L Carbon Dioxide (22-30) mmol/L Anion Gap (5-15) MEQ/L BUN (7-17) mg/dL Creatinine (0.52-1.04) mg/dL Estimated GFR ML/MIN Glucose (74-106) mg/dL Lactic Acid (0.4-2.0) Calcium (8.4-10.2) mg/dL Total Bilirubin (0.2-1.3) mg/dL AST (14-36) U/L ALT (0-35) U/L Alkaline Phosphatase (38-126) U/L Troponin I (0.000-0.034) ng/mL Serum Total Protein (6.3-8.2) g/dL Albumin (3.5-5.0) g/dL Urinalys Dipstick Clnc MAIN LAB Urine Color YELLOW (YELLOW) Urine Appearance CLEAR (CLEAR) Urine pH 5.5 (5-6) Ur Specific [place] >=1.030 (1.005-1.025) POC Urine Protein Conf NEGATIVE (Negative) Urine Ketones TRACE (NEGATIVE) Urine Nitrite NEGATIVE (NEGATIVE) Urine Bilirubin NEGATIVE (NEGATIVE) Urine Urobilinogen 0.2 (0-1) mg/dL Urine Leukocytes NEGATIVE (NEGATIVE) Urine WBC (Auto) 0-2 (0-5) /HPF Urine RBC (Auto) 0-2 (0-2) /HPF U Epithel Cells (Auto) NONE (FEW) /HPF Urine Bacteria (Auto) NONE (NEGATIVE) /HPF Urine RBC NEGATIVE (0-5) Lonnie/ul Urine Mucus (Auto) SLIGHT (NEGATIVE) /HPF Ur Culture Indicated? YES Urine Glucose NEGATIVE (NEGATIVE) mg/dL - Progress Progress: improved Progress Note: 11/22/21 19:10 81 years old is evaluated for generalized weakness fatigue post Covid and cough since yesterday and low oxygen saturation at home. Patient oxygen saturation remained in upper 90s and I have made her walk in the ER and it did not drop below 95 with ambulation. Chest x-ray no acute findings. EKG normal sinus without any acute ST elevation and negative troponin. Grossly unremarkable chemistries. No UTI. Although she is on Keflex for it. I believe it was a false reading by pulse ox. No signs of toxicity. Recommended supportive care and outpatient follow-up. X-ray wrist and forearm negative for any acute fracture reviewed by me, official report is pending. Discussed signs symptoms of worsening needing return to ER which son seems understanding. Stable for discharge. 11/22/21 19:11 Counseled pt/family regarding: lab results, diagnosis, need for follow-up, rad results - Departure Departure Disposition: Home Clinical Impression: Cough, Post-COVID syndrome Condition: Stable Critical Care Time: No Referrals: MERRICK JOVEL [Primary Care Provider] - Follow up/PCP as directed (1-2 days for re evaluation) Instructions: Cough, Adult (DC) Additional Instructions: Use Mucinex as needed. Continue with antibiotics for UTI. Follow-up with primary care for reevaluation. Monitor your oxygen saturation at home and if less than 90% and return to the ER immediately. Keep yourself well-hydrated.
--- NOTE | 2021-11-23 08:39 | XRAY ---
Indication: Cough. Positive Covid 19 one week ago. Comparison: May 29, 2006. Portable chest again demonstrates minimal left base subsegmental atelectasis/scarring and tiny right apical calcified granuloma. No focal infiltrate, consolidation, or large effusion. Heart not enlarged again with small hiatal hernia. Bony thorax intact again with osteopenia, degenerative changes, and scoliosis. Impression: Continued nonacute chest with chronic features.
--- NOTE | 2021-11-23 08:41 | XRAY ---
Indication: Pain following fall. Comparison: None 3 view right wrist demonstrates osteopenia, mild degenerative changes of 1st MCP, and mild degenerative changes first metacarpal my tango scaphoid articulation. No other bony, articular, or soft tissue abnormalities.
--- NOTE | 2021-11-23 08:41 | XRAY ---
Indication: Pain following fall. Comparison: None 2 view right forearm demonstrates osteopenia. No other bony, articular, or soft tissue abnormalities. Wrist reported separately.
== END 2021-11-22 19:07 | disposition home or self-care (01) ==
LOC: ED 16:34
DX: R05.9 Cough, unspecified (principal); U09.9 Post COVID-19 condition, unspecified; R53.1 Weakness; F03.90 Unspecified dementia, unspecified severity, without behavioral disturbance, psychotic disturbance, mood disturbance, and anxiety; I10 Essential (primary) hypertension; M25.531 Pain in right wrist; M79.631 Pain in right forearm; Z79.899 Other long term (current) drug therapy
CPT/HCPCS: 36000; 36415; 71045; 73090; 73110; 80053; 81015; 83605; 84484; 85025; 87086; 93005; 93041; 99284; P9612